=== PATIENT | female | born 1960 | race Caucasian/White ===

== ENCOUNTER → 2017-01-12 | Day surgery (SDC) | payer BC, OTHER ==
[2017-01-09 10:50] VITALS: Ht 162.6 cm; Wt 70.5 kg
[~2017-01-12] VITALS: Ht 162.6 cm; Wt 70.5 kg
[~2017-01-12] MED LIST: CHOL1TAB42 PO; HMLIS SC; LIDOCAINE HCL 2% 2 ML VIAL (20MG/ML) ONE; LOSA50TA6 PO; LVMI SC; METO25TA56 PO; OMEG10007 PO; ONDANSETRON INJ 2 MG/ML 2 ML VIAL ONE; PANT40TA PO; PREG200C PO; PROPOFOL IV EMULSION 10 MG/ML 20 ML VIAL IV ONE; [UNRECOGNIZED DRUG - OTHER] PO
--- NOTE | 2017-01-12 09:46 | Endo History and Physical ---
History & Physical Date of Service: January 12, 2017. Chief Complaint: Ab pain, N/V Referring Physician: Nancy Monsalve History of Present Illness 56 yo CF who presents for EGD and colonoscopy secondary to abdominal pain and nausea with vomiting. Past Surgical History Hx Cardiac Surgery: Yes (HEART CATH, NO STENTS) Hx Internal Defibrillator: No Hx Pacemaker: No Hx Abdominal Surgery: Yes (JORGE L, PELVIC EMBOLIZATIONS) Hx of Implantable Prosthesis: No Hx Post-Op Nausea and Vomiting: No Hx Cancer Surgery: No Hx Thoracic Surgery: No Hx Orthopedic: Yes (RT SHOULDER SURGERY, RT BUNIONECTOMY) Hx Urinary Tract Surgery: No Family History None Social History Smoking Status: Never Smoker Hx Substance Use: No Hx Alcohol Use: No Allergies Coded Allergies: Meperidine (Verified Allergy, Unknown, HIVES, 01/09/17) Current Medications Reported Home Medications Medications Dose Route/Sig Max Daily Dose Days Date Category Dose Instructions Vitamin D (Cholecalciferol) 5,000 Unit Tab 1 Tab PO QAM 01/09/17 Reported [[place]ridge Oil] 1 Cap PO BID 01/09/17 Reported [place]-3 (Fish Oil) 1 Ea Cap 1 Cap PO TID 01/09/17 Reported Humalog Kwikpen (Insulin Human Lispro) 100 Units/Ml Inj Units SC UD 01/09/17 Reported PER SLIDING SCALE Levemir (Insulin Detemir) 100 Units/Ml Inj 30 Units SC QAM 01/09/17 Reported Lyrica (Pregabalin) 200 Mg Cap 200 Mg PO BID 01/09/17 Reported Lopressor (Metoprolol Tartrate) 25 Mg Tab 25 Mg PO BID 01/09/17 Reported Cozaar (Losartan Potassium) 50 Mg Tab 50 Mg PO QAM 01/09/17 Reported Protonix (Pantoprazole Sodium) 40 Mg Tab 40 Mg PO BID 01/09/17 Reported Vital Signs Weight (Kilograms): 70.45 Height (Feet): 5 Height (Inches): 4 Physical Exam General Appearance: WD/WN, no apparent distress Respiratory/Chest: Auscultation: breath sounds normal Cardiovascular: Heart Auscultation: RRR Abdomen: Bowel Sounds: normal Inspection & Palpation: soft, non-distended, no tenderness, guarding & rebound Assessment and Plan Assessment: 56 yo CF who presents for EGD and colonoscopy secondary to abdominal pain and nausea with vomiting. Plan: Proceed with colonoscopy.
--- NOTE | 2017-01-12 10:09 | GI REPORT ---
Procedure Date: 01/12/2017 9:42 AM Procedure: Upper GI endoscopy Indications: Epigastric abdominal pain, Nausea with vomiting Medicines: Monitored Anesthesia Care Complications: No immediate complications. Estimated Blood Loss: Estimated blood loss: none. Procedure: Pre-Anesthesia Assessment: - Prior to the procedure, a History and Physical was performed, and patient medications and allergies were reviewed. The patient's tolerance of previous anesthesia was also reviewed. The risks and benefits of the procedure and the sedation options and risks were discussed with the patient. All questions were answered, and informed consent was obtained. Prior Anticoagulants: The patient has taken no previous anticoagulant or antiplatelet agents. ASA Grade Assessment: II - A patient with mild systemic disease. After reviewing the risks and benefits, the patient was deemed in satisfactory condition to undergo the procedure. After obtaining informed consent, the endoscope was passed under direct vision. Throughout the procedure, the patient's blood pressure, pulse, and oxygen saturations were monitored continuously. The scope was introduced through the mouth, and advanced to the second part of duodenum. The upper GI endoscopy was accomplished without difficulty. The patient tolerated the procedure well. Findings: The esophagus was normal. Localized mild inflammation characterized by erythema was found in the gastric antrum. Biopsies were taken with a cold forceps for histology. The examined duodenum was normal. Biopsies for histology were taken with a cold forceps for evaluation of celiac disease. Impression: - Normal esophagus. - Gastritis. Biopsied. - Normal examined duodenum. Biopsied. Recommendation: - Resume previous diet. - Continue present medications. - Await pathology results. - Return to primary care physician as previously scheduled. Torrey Ng DO 01/12/2017 10:08:42 AM This report has been signed electronically. Note Initiated On: 01/12/2017 9:42 AM I attest to the content of the Intraoperative Record and orders documented therein, exceptions below
--- NOTE | 2017-01-12 10:26 | GI REPORT ---
Procedure Date: 01/12/2017 10:05 AM Procedure: Colonoscopy Indications: Abdominal pain in the right lower quadrant Medicines: Monitored Anesthesia Care Complications: No immediate complications. Estimated Blood Loss: Estimated blood loss: none. Procedure: Pre-Anesthesia Assessment: - Prior to the procedure, a History and Physical was performed, and patient medications and allergies were reviewed. The patient's tolerance of previous anesthesia was also reviewed. The risks and benefits of the procedure and the sedation options and risks were discussed with the patient. All questions were answered, and informed consent was obtained. Prior Anticoagulants: The patient has taken no previous anticoagulant or antiplatelet agents. ASA Grade Assessment: II - A patient with mild systemic disease. After reviewing the risks and benefits, the patient was deemed in satisfactory condition to undergo the procedure. After I obtained informed consent, the scope was passed under direct vision. Throughout the procedure, the patient's blood pressure, pulse, and oxygen saturations were monitored continuously. The scope was introduced through the anus and advanced to the terminal ileum. The colonoscopy was performed without difficulty. The patient tolerated the procedure well. The quality of the bowel preparation was good. The terminal ileum, ileocecal valve, appendiceal orifice, and rectum were photographed. Findings: Non-bleeding internal hemorrhoids were found during retroflexion. The hemorrhoids were small. Several random biopsies were obtained with cold forceps for histology in the entire colon. Impression: - Non-bleeding internal hemorrhoids. - Several random biopsies were obtained in the entire colon. Recommendation: - Resume previous diet. - Continue present medications. - Repeat colonoscopy for surveillance based on pathology results. - Return to primary care physician as previously scheduled. Torrey Ng, DO 01/12/2017 10:25:18 AM This report has been signed electronically. Note Initiated On: 01/12/2017 10:05 AM I attest to the content of the Intraoperative Record and orders documented therein, exceptions below
--- NOTE | 2017-01-12 10:26 | Discharge Instructions ---
Endoscopy Patient Instructions Date / Procedure(s) Performed January 12, 2017. Colonoscopy, EGD Allergy Information Coded Allergies: Meperidine (Verified Allergy, Unknown, HIVES, 01/09/17) Discharge Date / Findings January 12, 2017. EGD: Gastritis s/p biopsies, Duodenal biopsies Colonoscopy: Random colon biopsies, Internal hemorrhoids Medication Instructions OK to resume all medications today as prescribed Reported Home Medications Medications Dose Route/Sig Max Daily Dose Days Date Category Dose Instructions Vitamin D (Cholecalciferol) 5,000 Unit Tab 1 Tab PO QAM 01/09/17 Reported [Borridge Oil] 1 Cap PO BID 01/09/17 Reported [place]-3 (Fish Oil) 1 Ea Cap 1 Cap PO TID 01/09/17 Reported Humalog Kwikpen (Insulin Human Lispro) 100 Units/Ml Inj Units SC UD 01/09/17 Reported PER SLIDING SCALE Levemir (Insulin Detemir) 100 Units/Ml Inj 30 Units SC QAM 01/09/17 Reported Lyrica (Pregabalin) 200 Mg Cap 200 Mg PO BID 01/09/17 Reported Lopressor (Metoprolol Tartrate) 25 Mg Tab 25 Mg PO BID 01/09/17 Reported Cozaar (Losartan Potassium) 50 Mg Tab 50 Mg PO QAM 01/09/17 Reported Protonix (Pantoprazole Sodium) 40 Mg Tab 40 Mg PO BID 01/09/17 Reported Provider Instructions Activity Restrictions - No exercising or heavy lifting for 24 hours. - Do not drink alcohol the day of the procedure. - Do not drive a car or operate machinery until the day after the procedure. - Do not make any important decisions or sign important papers in 24 hours after the procedure. Following Day: - Return to full activity which may include returning to work/school. Diet Start your diet with liquids and light foods (jello, soup, juice, toast). Then eat your usual diet if not nauseated. Treatment For Common After Affects For mild abdominal pain, bloating, or excessive gas: - Rest - Eat lightly - Lie on right side Follow-Up Information Follow-up with Nancy Monsalve as scheduled Anesthesia Information What You Should Know You have had a procedure that required some medicine to reduce anxiety and discomfort. This treatment is called moderate sedation. After receiving the treatment, you may be sleepy, but you will be able to breathe on your own. The effects of the treatment may last for several hours. Follow these instructions along with Activity/Diet recommendations noted above: * Do NOT do anything where dizziness or clumsiness would be dangerous. * Rest quietly at home today, then you can be up and about tomorrow. * Have a responsible person stay with you the rest of today. * You may have had an I.V. today. If so, you may take the dressing off later today. Recommendations Call your doctor if: * Trouble breathing * Continuous vomiting for more than 24 hours * Temperature above 101 degrees * Severe abdominal pain or bloating * Pain not relieved by pain medicine ordered * There is increased drainage or redness from any incision * A large amount of rectal bleeding greater than 2-3 tablespoons. (If you had a polyp/s removed or have hemorrhoids, a small amount of blood - from the rectum is to be expected.) * You have any unanswered questions or concerns. IN THE EVENT OF A SERIOUS EMERGENCY, GO TO THE NEAREST EMERGENCY ROOM Your discharge instructions were prepared by provider Torrey Ng. Patient Instructions Signature Page Danielle Cisneros Patient (or Guardian) Signature/Date: I have read and understand the instructions given to me by my caregivers. Caregiver/RN/Doctor Signature/Date: The above-named patient and/or guardian has received patient instructions on this date. + Original Patient Signature Page (only) stays with chart. Please make copy for patient.
[2017-01-12 10:54] VITALS: BP 116/79; PULSE 80; O2SAT 96
--- NOTE | 2017-01-12 11:01 | Anesthesiology Progress Note ---
Anesthesia Post Op Note Date & Time January 12, 2017 at 11:01 Vital Signs Pain Intensity: 4 Vital Signs Past 12 Hours Date Time Temp Pulse Resp B/P Pulse Ox O2 Delivery O2 Flow Rate FiO2 01/12/17 10:54 80 18 116/79 96 Room Air 01/12/17 10:39 80 18 137/80 96 Room Air 01/12/17 10:24 91 18 150/90 97 Room Air 01/12/17 09:40 36.9 91 20 155/92 97 Room Air Notes Mental Status: alert / awake / arousable, participated in evaluation Pt Amnestic to Procedure: Yes Nausea / Vomiting: adequately controlled Pain: adequately controlled Airway Patency, RR, SpO2: stable & adequate BP & HR: stable & adequate Hydration State: stable & adequate Anesthetic Complications: no major complications apparent
== END | disposition home or self-care (01) ==
LOC: C.GI 09:00
PROVIDERS: ATTEND Internal Medicine
DX: K29.70 Gastritis, unspecified, without bleeding (principal); K64.8 Other hemorrhoids; R10.31 Right lower quadrant pain; R11.2 Nausea with vomiting, unspecified

== ENCOUNTER → 2017-07-10 | Outpatient (CLI) | payer OTHER ==
[~2017-07-10] MED LIST changes: -LIDOCAINE HCL 2% 2 ML VIAL (20MG/ML) ONE; -ONDANSETRON INJ 2 MG/ML 2 ML VIAL ONE; -PROPOFOL IV EMULSION 10 MG/ML 20 ML VIAL IV ONE
[2017-07-10 12:37] LABS: BASO % 0.8 %; BASO ABS # 0.07 K/uL (0-0.2); COMPLETE YES; EOS % 2.2 %; HEMATOCRIT 42.1 % (37-47); IG% 0.2 %; LYMPH % 41.6 %; LYMPH ABS # 3.46 K/uL (1.2-3.4); MEAN CELL VOLUME 91.9 fL (80-100); MEAN CORPUSCULAR HEMOGLOBIN 33.2 pg (25-34); MEAN CORPUSCULAR HGB CONC 36.1 g/dl (32-36); MEAN PLATELET VOLUME 9.9 fL (7.4-10.4); MONO % 5.4 %; NEUT % 49.8 %; PLATELET COUNT 263 K/uL (130-400); RED BLOOD COUNT 4.58 M/uL (4.2-5.4); WHITE BLOOD COUNT 8.32 K/uL (4.8-10.8)
[2017-07-10 13:04] LABS: ESTIMATED AVERAGE GLUCOSE 114 mg/dl; HA1C FLAG Normal (Normal)
[2017-07-10 13:05] LABS: ALT/SGPT 38 U/L (12-78); AST/SGOT 18 U/L (15-37); BLOOD UREA NITROGEN 23 mg/dl (7-18); BUN/CREATININE RATIO 22.4 (10-20); CALCIUM 9.3 mg/dl (8.5-10.1); CARBON DIOXIDE 24 mmol/L (21-32); CHLORIDE 103 mmol/L (98-107); CREATININE 1.03 mg/dl (0.60-1.20); GLUCOSE 197 mg/dl (70-99); SODIUM 139 mmol/L (136-145)
[2017-07-10 13:16] LABS: ALB/GLOB RATIO 1.2 (0.9-2); ALKALINE PHOSPHATASE 61 U/L (45-117)
== END | disposition home or self-care (01) ==
LOC: C.LABBFT 08:10
PROVIDERS: ATTEND Internal Medicine
DX: Z00.00 Encounter for general adult medical examination without abnormal findings (principal); E11.9 Type 2 diabetes mellitus without complications; K76.0 Fatty (change of) liver, not elsewhere classified; E78.5 Hyperlipidemia, unspecified; I10 Essential (primary) hypertension; M34.1 CR(E)ST syndrome

== ENCOUNTER → 2017-09-26 | Outpatient (CLI) | payer BC ==
--- NOTE | 2017-09-26 09:25 | DIAGNOSTIC IMAGING REPORT ---
LEFT HAND 3 VIEWS HISTORY: M02.30 Reactive arthritis H20.9 Uveitis [id number] COMPARISON: None. FINDINGS: There is no fracture or dislocation. Soft tissues are unremarkable. Bone mineralization is intact. Mild cartilage space narrowing at the radiocarpal joint, first MCP joint, interphalangeal joint of the thumb, and DIP and PIP joints. There are also small marginal osteophytes at the DIP and PIP joints of the index and middle fingers. Findings are consistent with mild osteoarthritis. No abnormal periosteal reaction. IMPRESSION: Mild osteoarthritis within the left hand/wrist as described above. No erosions identified. Electronically signed by: Musa Beckman M.D. 09/26/2017 9:23 AM Dictated Date/Time: 09/26/2017 9:21 AM
--- NOTE | 2017-09-26 09:26 | DIAGNOSTIC IMAGING REPORT ---
R HAND MIN 3 VIEWS ROUTINE CLINICAL HISTORY: Reactive arthritis. Uveitis. COMPARISON: None FINDINGS: Alignment of the right hand is anatomic. There is no fracture or suspicious lesion. No erosions are identified. There is mild osteoarthritis within multiple articulations of the right hand, including multiple DIP joints and the radiocarpal articulation. IMPRESSION: 1. Mild osteoarthritis within several articulations of the right hand. 2. No radiographic evidence of an erosive/inflammatory arthropathy. Electronically signed by: Law Monsalve M.D. 09/26/2017 9:25 AM Dictated Date/Time: 09/26/2017 9:20 AM
[2017-09-30 20:35] LABS: ANA SCREEN TC 249X NEGATIVE (NEGATIVE); ANTI-SS-A <1.0 NEG AI (<1.0 NEG); ANTI-SS-B <1.0 NEG AI (<1.0 NEG); ANTICARDIOLIPID AB IGA <11 APL (< = 11); COMPLEMENT C3 TC 44859W 166 MG/DL (90-180); COMPLEMENT C4 TC 44982E 36 MG/DL (16-47); MICROSOMAL AB <1 IU/ML (<9)
== END | disposition home or self-care (01) ==
LOC: C.RAD1850 08:55
PROVIDERS: ATTEND Internal Medicine Rheumatology
DX: M02.30 Reiter's disease, unspecified site (principal); H20.9 Unspecified iridocyclitis; M19.041 Primary osteoarthritis, right hand; M19.042 Primary osteoarthritis, left hand

== ENCOUNTER 2017-10-17 02:02 | Emergency (ER) | payer BC ==
[~2017-10-17] VITALS: Ht 165.1 cm; Wt 73.7 kg
[2017-10-17 02:05] VITALS: TEMP 36.5; Ht 165.1 cm; Wt 73.7 kg
[2017-10-17] MEDS ORDERED: CARB1CAP10 PO (02:37)
[2017-10-17] MEDS ORDERED: GABA-113 PO (02:37)
[2017-10-17] MEDS ORDERED: INDO-24 PO (02:38)
[2017-10-17] MEDS ORDERED: TRAM-10 PO (02:39)
[2017-10-17] MEDS ORDERED: TIZA4TAB3 PO (02:40)
[2017-10-17 04:23] VITALS: BP 165/100; PULSE 95; O2SAT 97
--- NOTE | 2017-10-17 06:48 | DIAGNOSTIC IMAGING REPORT ---
L-SPINE MIN 4 VIEWS ROUTINE CLINICAL HISTORY: Right leg pain. COMPARISON: None FINDINGS: Note is made of cholecystectomy clips and suspected endovascular coils which project over the abdomen and pelvis. Alignment of the lumbar spine is anatomic with the exception of slight anterolisthesis of L5 on S1. No acute fracture is identified. There is mild multilevel facet arthrosis. There are equivocal L5 pars defects. Disc spaces are preserved. There is mild endplate osteophytosis. IMPRESSION: 1. No acute lumbar spine fracture. 2. Minimal anterolisthesis of L5 on S1 with equivocal L5 pars defects. 3. Mild multilevel facet arthrosis and mild multilevel endplate osteophytosis with preserved disc spaces. Electronically signed by: Law Monsalve M.D. 10/17/2017 6:46 AM Dictated Date/Time: 10/17/2017 6:44 AM
--- NOTE | 2017-10-17 06:49 | DIAGNOSTIC IMAGING REPORT ---
PELVIS 1 OR 2 VIEW ROUTINE CLINICAL HISTORY: Right leg pain. COMPARISON STUDY: No previous studies for comparison. FINDINGS: Endovascular coils project over the lower abdomen and upper pelvis. The sacroiliac joints and symphysis pubis are intact. There is no fracture or suspicious lesion within the pelvis or hips. Hip joint spaces are preserved. There is mild osteophytosis of both hips. A 1 cm calcific density adjacent to the superior aspect of the greater trochanter of the left femur is noted. IMPRESSION: 1. No acute fracture within the pelvis or hips. 2. Mild osteoarthritis of the hips. 3. 1 cm calcific density adjacent to the greater trochanter left femur which is chronic and likely due to muscular insertion. Electronically signed by: Law Monsalve M.D. 10/17/2017 6:48 AM Dictated Date/Time: 10/17/2017 6:47 AM
--- NOTE | 2017-10-17 06:50 | DIAGNOSTIC IMAGING REPORT ---
ULTRASOUND R VENOUS DOPP LOWER EXT UNILAT CLINICAL HISTORY: Right leg pain COMPARISON STUDY: No previous studies for comparison. FINDINGS: Real-time and color flow Doppler imaging were performed. Flow was seen within the femoral, popliteal and calf veins with no intraluminal thrombus demonstrated. The saphenous vein is patent. IMPRESSION: No evidence of right lower extremity DVT. Electronically signed by: Jordan Culp M.D. 10/17/2017 6:49 AM Dictated Date/Time: 10/17/2017 6:48 AM
--- NOTE | 2017-10-17 07:00 | DIAGNOSTIC IMAGING REPORT ---
R FEMUR 2 VIEWS ROUTINE CLINICAL HISTORY: Right leg pain. No known trauma. COMPARISON: None FINDINGS: Endovascular coils are incidentally noted within the right hemipelvis. Alignment of the right hip and right knee is anatomic. No fracture or osseous lesion is present. Right hip joint space is preserved. There is mild osteophytosis of the right hip. IMPRESSION: 1. No acute fracture of the right femur. 2. Preserved right hip joint space with minimal osteophytosis. Electronically signed by: Law Monsalve M.D. 10/17/2017 6:58 AM Dictated Date/Time: 10/17/2017 6:58 AM
--- NOTE | 2017-10-18 00:09 | EMERGENCY ROOM VISIT NOTE ---
History First contact with patient: 02:14 Chief Complaint: LEG PAIN,LEG INJURY Stated Complaint: PAIN IN RIGHT THIGH History of Present Illness The patient is a 57 year old female who presents to the Emergency Room with complaints of medial right leg pain for the past 5 or 6 weeks. The patient does not recall injury or trauma. She states the pain is on the medial aspect of her right thigh. The pain does come and go, and she states it is worse tonight than it has been previously. She rates her current discomfort a 7/10, and she was not able to sleep because of the pain. She actually has an appointment with her PCP in 12 hours for this complaint. She has several medications for pain that she takes on a regular basis, but this has not been helping her symptoms. She has been able to ambulate and is not report distinct back or hip pain. No paresthesias. No difficulty using the bathroom. Review of Systems More than 10 systems were reviewed and otherwise negative with the exception of history of present illness. Past Medical/Surgical History Medical Problems: (1) ASTHMA, UNSPECIFIED (2) Cholecystectomy (3) DIAB DESIREE WO COMPL, TYPE II OR UNSPEC TYPE, NOT UNCNTRLD (4) fibromyalgia (5) HYPERTENSION NOS (6) Paroxysmal atrial tachycardia (7) pelvic embolization (8) shoulder arthroscopy for labrum tear Family History No pertinent family history Social History Smoking Status: Never Smoker Alcohol Use: occasionally Marital Status: Housing Status: lives with family Occupation Status: employed Current/Historical Medications Scheduled Carbamazepine Extended Release (Tegretol Xr), 100 MG PO BID Cholecalciferol (Vitamin D), 1 TAB PO QAM Fish Oil ([place]-3), 1 CAP PO TID Gabapentin (Neurontin), 300 MG PO QID Indomethacin (Indocin), 50 MG PO BID Insulin Detemir (Levemir), 30 UNITS SC QAM Insulin Human Lispro (Humalog Kwikpen), UNITS SC UD Losartan Potassium (Cozaar), 100 MG PO QAM Metoprolol Tartrate (Lopressor) (Lopressor), 25 MG PO BID Pantoprazole (Protonix), 40 MG PO BID Pregabalin (Lyrica), 100 MG PO BID Tizanidine Hcl (Zanaflex), 4 MG PO DIRECTED Scheduled PRN Tramadol (Ultram), 100 MG PO QID PRN for Pain Physical Exam Vital Signs Date Time Temp Pulse Resp B/P (MAP) Pulse Ox O2 Delivery O2 Flow Rate FiO2 10/17/17 04:23 95 20 165/100 97 10/17/17 02:43 65 20 151/79 96 Room Air 10/17/17 02:05 36.5 74 20 184/108 98 Room Air Physical Exam VITALS: Vitals are noted on the nurse's note and reviewed by myself. Vital signs stable. GENERAL: Well-developed, well-nourished, white female, who is in no acute distress and resting comfortably. Patient is cooperative with the examination. HEART: Regular rate and rhythm without murmurs gallops or rubs. LUNGS: Clear to auscultation bilaterally without wheezes, rales or rhonchi. No retractions or accessory muscle use. MUSCULOSKELETAL: Mild tenderness appreciated along the medial aspect of the right thigh without distinct focal tenderness. No obvious tenderness of the lumbar spine, hip, or knee. No palpable cord or evidence of infection. Neurovascular status appears intact distally. NEURO: Patient was alert and oriented to person place and time. CN II through XII grossly intact. No focal neurological deficits. Medical Decision & Procedures ER Provider Diagnostic Interpretation: PELVIS 1 OR 2 VIEW ROUTINE CLINICAL HISTORY: Right leg pain. COMPARISON STUDY: No previous studies for comparison. FINDINGS: Endovascular coils project over the lower abdomen and upper pelvis. The sacroiliac joints and symphysis pubis are intact. There is no fracture or suspicious lesion within the pelvis or hips. Hip joint spaces are preserved. There is mild osteophytosis of both hips. A 1 cm calcific density adjacent to the superior aspect of the greater trochanter of the left femur is noted. IMPRESSION: 1. No acute fracture within the pelvis or hips. 2. Mild osteoarthritis of the hips. 3. 1 cm calcific density adjacent to the greater trochanter left femur which is chronic and likely due to muscular insertion. L-SPINE MIN 4 VIEWS ROUTINE CLINICAL HISTORY: Right leg pain. COMPARISON: None FINDINGS: Note is made of cholecystectomy clips and suspected endovascular coils which project over the abdomen and pelvis. Alignment of the lumbar spine is anatomic with the exception of slight anterolisthesis of L5 on S1. No acute fracture is identified. There is mild multilevel facet arthrosis. There are equivocal L5 pars defects. Disc spaces are preserved. There is mild endplate osteophytosis. IMPRESSION: 1. No acute lumbar spine fracture. 2. Minimal anterolisthesis of L5 on S1 with equivocal L5 pars defects. 3. Mild multilevel facet arthrosis and mild multilevel endplate osteophytosis with preserved disc spaces. R FEMUR 2 VIEWS ROUTINE CLINICAL HISTORY: Right leg pain. No known trauma. COMPARISON: None FINDINGS: Endovascular coils are incidentally noted within the right hemipelvis. Alignment of the right hip and right knee is anatomic. No fracture or osseous lesion is present. Right hip joint space is preserved. There is mild osteophytosis of the right hip. IMPRESSION: 1. No acute fracture of the right femur. 2. Preserved right hip joint space with minimal osteophytosis. ULTRASOUND R VENOUS DOPP LOWER EXT UNILAT CLINICAL HISTORY: Right leg pain COMPARISON STUDY: No previous studies for comparison. FINDINGS: Real-time and color flow Doppler imaging were performed. Flow was seen within the femoral, popliteal and calf veins with no intraluminal thrombus demonstrated. The saphenous vein is patent. IMPRESSION: No evidence of right lower extremity DVT. ED Course Physical exam and history were performed. Nursing notes, EMR, and Medication List were personally reviewed. Patient appears to have pain along the medial aspect of her right thigh for the past month. She has anxiety regarding this pain, and states she is unable sleep because of it. I am not able to appreciate neurologic deficit on my exam. X-rays and ultrasound were performed. X-rays are as above and reviewed by myself and radiology showing no acute fracture or correlating bony abnormality. Ultrasound was negative for DVT. I discussed options of care with the patient. She is going to keep her follow- up appointment with her primary care physician this afternoon for further management. She was otherwise invited back to the ER with any new, worsening, or concerning symptoms. The chart was completed utilizing [employer] Speech Voice Recognition Software. Grammatical errors, random word insertions, pronoun errors, and incomplete sentences are an occasional consequence of this system due to software limitations, ambient noise, and hardware issues. Any formal questions or concerns about the content, text, or information contained within the body of this dictation should be directly addressed to the provider for clarification. . Medical Decision Differential diagnosis: Etiologies such as DVT, musculoskeletal, infection, joint effusion, trauma, lymphedema, idiopathic, CHF, as well as others were entertained.. Impression Primary Impression: Right leg pain Departure Information Dispostion Home / Self-Care Condition GOOD Forms HOME CARE DOCUMENTATION FORM, IMPORTANT VISIT INFORMATION Patient Instructions My [facility] Additional Instructions You were seen and evaluated today on an emergency basis only. This is not a substitute for, or an effort to provide, complete comprehensive medical care. It is not possible to recognize and treat all injuries or illnesses in a single emergency department visit. For this reason it is recommended that you followup with your primary care physician office later today for recheck of your condition. You are welcome to return to the emergency department anytime with new, worsening, or concerning symptoms.
== END 2017-10-17 04:27 | disposition home or self-care (01) ==
LOC: C.EDB 02:03
DX: M79.604 Pain in right leg (principal); J45.909 Unspecified asthma, uncomplicated; E11.9 Type 2 diabetes mellitus without complications; I10 Essential (primary) hypertension; I47.1 Supraventricular tachycardia; Z79.4 Long term (current) use of insulin

== ENCOUNTER → 2017-10-18 | Outpatient (CLI) | payer BC ==
[~2017-10-18] MED LIST changes: +CARB1CAP10 PO; +GABA-113 PO; +INDO-24 PO; +TIZA4TAB3 PO; +TRAM-10 PO; -[UNRECOGNIZED DRUG - OTHER] PO
[2017-10-18 13:04] LABS: BLOOD UREA NITROGEN 19 mg/dl (7-18); CREATININE 0.86 mg/dl (0.60-1.20)
== END | disposition home or self-care (01) ==
LOC: C.LABBFT 08:34
PROVIDERS: ATTEND Physician Assistant
DX: E11.9 Type 2 diabetes mellitus without complications (principal)

== ENCOUNTER → 2017-10-27 | Outpatient (CLI) | payer BC ==
[2017-10-27 13:12] LABS: HEMATOCRIT 44.4 % (37-47); HEMOGLOBIN 15.9 g/dL (12.0-16.0); MEAN CELL VOLUME 89.5 fL (80-100); MEAN CORPUSCULAR HEMOGLOBIN 32.1 pg (25-34); MEAN CORPUSCULAR HGB CONC 35.8 g/dl (32-36); MEAN PLATELET VOLUME 9.9 fL (7.4-10.4); PLATELET COUNT 304 K/uL (130-400); RED CELL DISTRIBUTION WIDTH SD 42.3 fL (36.4-46.3); WHITE BLOOD COUNT 6.59 K/uL (4.8-10.8)
[2017-10-27 13:56] LABS: BASO % 0.8 %; BASO ABS # 0.05 K/uL (0-0.2); EOS % 2.3 %; EOS ABS # 0.15 K/uL (0-0.5); IG# 0.01 K/uL (0.00-0.02); LYMPH ABS # 3.43 K/uL (1.2-3.4); MONO ABS # 0.33 K/uL (0.11-0.59); NEUT % 39.7 %; NEUT ABS # 2.62 K/uL (1.4-6.5)
[2017-10-27 13:59] LABS: ALBUMIN 3.7 gm/dl (3.4-5.0); ALKALINE PHOSPHATASE 73 U/L (45-117); ALT/SGPT 39 U/L (12-78); AST/SGOT 17 U/L (15-37); BLOOD UREA NITROGEN 17 mg/dl (7-18); CARBON DIOXIDE 25 mmol/L (21-32); GLUCOSE 267 mg/dl (70-99); POTASSIUM 3.9 mmol/L (3.5-5.1); SODIUM 139 mmol/L (136-145); TOTAL PROTEIN 6.9 gm/dl (6.4-8.2)
== END | disposition home or self-care (01) ==
LOC: C.LAB1850 11:56
PROVIDERS: ATTEND Physician Assistant
DX: G50.0 Trigeminal neuralgia (principal)

== ENCOUNTER → 2017-11-02 | Outpatient (CLI) | payer BC | END | disposition home or self-care (01) | LOC: C.MRI 10:38 | PROVIDERS: ATTEND Internal Medicine Rheumatology | DX: M12.80 Other specific arthropathies, not elsewhere classified, unspecified site (principal) ==

== ENCOUNTER → 2017-11-07 | Outpatient (CLI) | payer BC ==
--- NOTE | 2017-11-02 12:44 | DIAGNOSTIC IMAGING REPORT ---
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 There are no areas of marrow replacement to indicate neoplasm. There is no evidence of sacroiliac joint edema. There is no evidence of pathologic adenopathy. There are no areas of marrow edema to indicate occult fracture. IMPRESSION: No MRI evidence of sacroiliitis. Electronically signed by: Jordan Culp M.D. 11/02/2017 12:43 PM Dictated Date/Time: 11/02/2017 12:40 PM
[~2017-11-07] MED LIST changes: +GADAVIST IV PRN
--- NOTE | 2017-11-07 15:09 | DIAGNOSTIC IMAGING REPORT ---
MRI OF THE BRAIN COMBO TRIGEMINAL NERVE PROTOCOL CLINICAL HISTORY: Right-sided facial pain. COMPARISON STUDY: No priors. TECHNIQUE: MRI of the brain was performed utilizing various T1 and T2-weighted sequences in the axial, sagittal, and coronal planes. Contrast-enhanced sequences were acquired following the administration of 7 cc of Gadavist. Additional high-resolution imaging was performed through the skull base both pre and post contrast to assess the trigeminal nerves. FINDINGS: Brain parenchyma: Small chronic lacunar infarcts are identified in both cerebellar hemispheres. There is minimal periventricular microangiopathic disease. There is no hemorrhage or mass effect. There is no restricted diffusion to suggest acute ischemia. No enhancing mass lesion is identified on the postcontrast images. Jewell-white matter differentiation is preserved. No extra-axial fluid collection is seen. The cerebellar tonsils are normal in configuration. Ventricles, sulci, and cisterns: Normal in configuration. Trigeminal nerves: The trigeminal nerves are normal and symmetric. No abnormal enhancement is identified on the postcontrast series. Pituitary and sella: Unremarkable. Intracranial vasculature: Normal flow voids are maintained at the skull base. Orbits: The bony orbits are grossly intact. Orbital contents are normal in appearance. Sinuses and mastoids: There is a small left mastoid effusion. The right mastoid air cells are clear. The paranasal sinuses are well pneumatized. Calvarium: Unremarkable. Cervical cord: Partially visualized cervical spinal cord is normal in morphology and signal intensity. IMPRESSION: 1. No acute intracranial abnormality. 2. Unremarkable MRI assessment of the trigeminal nerves. Electronically signed by: Bud Yeung M.D. 11/07/2017 3:08 PM Dictated Date/Time: 11/07/2017 3:03 PM
== END | disposition home or self-care (01) ==
LOC: C.MRI 13:46
PROVIDERS: ATTEND Physician Assistant
DX: G50.0 Trigeminal neuralgia (principal); M12.80 Other specific arthropathies, not elsewhere classified, unspecified site

== ENCOUNTER 2017-11-21 11:45 | Emergency (ER) | payer BC ==
[~2017-11-21] VITALS: Ht 165.1 cm; Wt 74.0 kg
[~2017-11-21 11:45] MED LIST changes: -GADAVIST IV PRN
[2017-11-21 11:52] VITALS: TEMP 36.8; Ht 165.1 cm; Wt 74.0 kg
--- NOTE | 2017-11-21 12:26 | DIAGNOSTIC IMAGING REPORT ---
CHEST ONE VIEW PORTABLE CLINICAL HISTORY: 57 years-old Female presenting with Chest pain. TECHNIQUE: Portable upright AP view of the chest was obtained. COMPARISON: 10/05/2012. FINDINGS: Atherosclerosis of the aortic arch. Cardiac silhouette normal in size. Lungs and pleural spaces clear. 2 anchors noted in the right bony glenoid. Upper abdomen normal. IMPRESSION: 1. No acute cardiopulmonary disease. Electronically signed by: Perry Braxton M.D. 11/21/2017 12:24 PM Dictated Date/Time: 11/21/2017 12:24 PM
[2017-11-21 12:47] LABS: HEMATOCRIT 40.4 % (37-47); HEMOGLOBIN 15.1 g/dL (12.0-16.0); MEAN CELL VOLUME 88.8 fL (80-100); MEAN CORPUSCULAR HEMOGLOBIN 33.2 pg (25-34); MEAN CORPUSCULAR HGB CONC 37.4 g/dl (32-36); MEAN PLATELET VOLUME 9.2 fL (7.4-10.4); PLATELET COUNT 252 K/uL (130-400); RED CELL DISTRIBUTION WIDTH SD 41.7 fL (36.4-46.3); WHITE BLOOD COUNT 5.81 K/uL (4.8-10.8)
[2017-11-21 12:56] LABS: INR 1.1 (0.9-1.1); PTT PATIENT 22.1 SECONDS (21.0-31.0)
[2017-11-21 13:17] LABS: ALBUMIN 3.6 gm/dl (3.4-5.0); CALCIUM 8.6 mg/dl (8.5-10.1); CREATININE 0.9 mg/dl (0.60-1.20); POTASSIUM 4.2 mmol/L (3.5-5.1)
--- NOTE | 2017-11-21 13:25 | DIAGNOSTIC IMAGING REPORT ---
CT HEAD WITHOUT CONTRAST (CT) CLINICAL HISTORY: Gait disturbance. Difficulty finding words. COMPARISON STUDY: MRI the brain dated 11/07/2017 TECHNIQUE: Axial CT of the brain is performed from the vertex to the skull base. IV contrast was not administered for this examination. A dose lowering technique was utilized adhering to the principles of ALARA. CT DOSE: 623.48 mGy.cm FINDINGS: No intra or extra-axial mass lesions are visualized. There is no CT evidence of acute cortical infarction. There is no evidence of midline shift. There is no acute hemorrhage. No calvarial fractures are visualized. Prominent frontal CSF space remains stable. There is no evidence of pathologic ventricular dilatation. There is no evidence of acute sinusitis IMPRESSION: No acute intracranial findings Electronically signed by: Jordan Culp M.D. 11/21/2017 1:23 PM Dictated Date/Time: 11/21/2017 1:22 PM
[2017-11-21 13:29] LABS: CKMB 0.5 ng/ml (0.5-3.6); TOTAL PROTEIN 6.3 gm/dl (6.4-8.2)
--- NOTE | 2017-11-21 16:11 | EMERGENCY ROOM VISIT NOTE ---
History First contact with patient: 12:27 Chief Complaint: CARDIAC ASSESSMENT Stated Complaint: CHEST PAIN, PAIN IN HEAD Nursing Triage Summary: pt to the ED with c/o chest pain that goes into neck with FULTON and jaw pain sx started am today pt was seen at [facility] today and sent over has trigeminal neualgia and just had tegretol increased per orange call in sheet History of Present Illness The patient is a 57 year old female who presents to the Emergency Room via private vehicle with complaints of "chest pain, pain in head". The patient states that earlier today around 3:57 AM she woke up to get a drink and had some juice and soup. She states really thereafter had diarrhea and took her tramadol. She then had pain in the right lower quadrant but notes a history of IBS. She tried sweets as the symptoms constipates her. She felt her vision may be off therefore took 20 units of Humalog as this normally helps. She notes that her joints began to hurt, that she massage the joints. She does do stretches and that headache started, and then chest pain around 10 AM. She notes substernal chest pain that is worse with exertion. She felt that her heart was fluttering. She notes that she has had a heart catheterization, thorough cardiac workup and Holter monitor/event monitor which were essentially negative. She states that she took more metoprolol. She then had pain going into her neck and felt dizzy. She states that she also is changing with Tegretol. She also notes a gait disturbance of which she has had for over a year but worsened today. She also feels that she is word searching. Review of Systems A complete 10-point Review of Systems was discussed with the patient, with pertinent positives and negatives listed in the History of Present Illness. All remaining Review of Systems questions can be considered negative unless otherwise specified. Past Medical/Surgical History Medical Problems: (1) ASTHMA, UNSPECIFIED (2) Cholecystectomy (3) DIAB DESIREE WO COMPL, TYPE II OR UNSPEC TYPE, NOT UNCNTRLD (4) fibromyalgia (5) HYPERTENSION NOS (6) Paroxysmal atrial tachycardia (7) pelvic embolization (8) shoulder arthroscopy for labrum tear Social History Smoking Status: Never Smoker Alcohol Use: occasionally Marital Status: Housing Status: lives with family Occupation Status: employed Current/Historical Medications Scheduled Carbamazepine Extended Release (Tegretol Xr), 100 MG PO BID Cholecalciferol (Vitamin D), 1 TAB PO QAM Fish Oil ([place]-3), 1 CAP PO TID Gabapentin (Neurontin), 300 MG PO QID Indomethacin (Indocin), 50 MG PO BID Insulin Detemir (Levemir), 30 UNITS SC QAM Insulin Human Lispro (Humalog Kwikpen), UNITS SC UD Losartan Potassium (Cozaar), 100 MG PO QAM Metoprolol Tartrate (Lopressor) (Lopressor), 25 MG PO BID Pantoprazole (Protonix), 40 MG PO BID Pregabalin (Lyrica), 100 MG PO BID Scheduled PRN Tramadol (Ultram), 100 MG PO QID PRN for Pain Physical Exam Vital Signs Date Time Temp Pulse Resp B/P (MAP) Pulse Ox O2 Delivery O2 Flow Rate FiO2 11/21/17 16:29 75 18 135/80 97 Room Air 11/21/17 13:51 58 18 119/61 97 Room Air 11/21/17 12:19 70 11/21/17 11:52 36.8 69 16 145/79 98 Room Air Physical Exam VITAL SIGNS - Vital signs and nursing notes were reviewed. Stable. GENERAL -57-year-old female appearing her stated age who is in no acute distress. She is nontoxic in appearance and communicates without difficulty. Communicates well with provider and answers questions appropriately. SKIN - Without rashes. No meningeal or petechial rash. HEAD - NC/AT. EYES - PERRL with EOMI bilaterally. Sclera anicteric. No hyphema. EARS - No deformities of external structures noted on gross examination bilaterally.External auditory canals without discharge or otorrhea. Tympanic membranes pearly ceballos without retraction or bulging. No fluid or purulent material visualized behind the TM. Handle of malleus, umbo, cone of light, pars tensa/flaccid all easily visualized. NOSE - Midline and without cyanosis. No epistaxis or purulent drainage noted. Septum midline without deviation or septal hematoma noted. MOUTH/OROPHARYNX - Without perioral cyanosis. Buccal mucosa pink and moist and without leukoplakia. Tongue midline with equal elevation of palate bilaterally. No tonsillar hypertrophy, erythema, or exudates noted. Fair dentition noted. NECK - Neck with FROM. No nuchal rigidity. LUNGS - Chest wall symmetric without accessory muscle use, intercostals retractions, or central cyanosis. Normal vesicular breath sounds CTA B/L. No wheezes, rales, or rhonchi appreciated. CARDIAC - RRR with S1/S2. No murmur, rubs, or gallops appreciated. EXTREMITIES - No clubbing or peripheral cyanosis. No pretibial edema present. She is neurovascularly intact in her extremities. +5/5 strength noted in UE/LE bilaterally. NEUROLOGIC - Cranial nerves II through XII grossly intact. Sensory intact to light touch throughout. PSYCH - A&Ox3 and cooperates fully with examiner. Pt is very pleasant and interacts well with examiner. Medical Decision & Procedures ER Provider Diagnostic Interpretation: CT HEAD WITHOUT CONTRAST (CT) CLINICAL HISTORY: Gait disturbance. Difficulty finding words. COMPARISON STUDY: MRI the brain dated 11/07/2017 TECHNIQUE: Axial CT of the brain is performed from the vertex to the skull base. IV contrast was not administered for this examination. A dose lowering technique was utilized adhering to the principles of ALARA. CT DOSE: 623.48 mGy.cm FINDINGS: No intra or extra-axial mass lesions are visualized. There is no CT evidence of acute cortical infarction. There is no evidence of midline shift. There is no acute hemorrhage. No calvarial fractures are visualized. Prominent frontal CSF space remains stable. There is no evidence of pathologic ventricular dilatation. There is no evidence of acute sinusitis IMPRESSION: No acute intracranial findings CHEST ONE VIEW PORTABLE CLINICAL HISTORY: 57 years-old Female presenting with Chest pain. TECHNIQUE: Portable upright AP view of the chest was obtained. COMPARISON: 10/05/2012. FINDINGS: Atherosclerosis of the aortic arch. Cardiac silhouette normal in size. Lungs and pleural spaces clear. 2 anchors noted in the right bony glenoid. Upper abdomen normal. IMPRESSION: 1. No acute cardiopulmonary disease. Electronically signed by: Perry Braxton M.D. 11/21/2017 12:24 PM Dictated Date/Time: 11/21/2017 12:24 PM Laboratory Results 11/21/17 12:35 11/21/17 12:35 Test 11/21/17 12:35 11/21/17 12:46 11/21/17 13:50 11/21/17 14:55 Red Blood Count 4.55 M/uL (4.2-5.4) Mean Corpuscular Volume 88.8 fL (80-100) Mean Corpuscular Hemoglobin 33.2 pg (25-34) Mean Corpuscular Hemoglobin Concent 37.4 g/dl (32-36) RDW Standard Deviation 41.7 fL (36.4-46.3) RDW Coefficient of Variation 13.0 % (11.5-14.5) Mean Platelet Volume 9.2 fL (7.4-10.4) Prothrombin Time 11.3 SECONDS (9.0-12.0) Prothromb Time International Ratio 1.1 (0.9-1.1) Activated Partial Thromboplast Time 22.1 SECONDS (21.0-31.0) Partial Thromboplastin Ratio 0.9 Anion Gap 9.0 mmol/L (3-11) Est Creatinine Clear Calc Drug Dose 69.5 ml/min Estimated GFR () 82.3 Estimated GFR (Non- 71.0 BUN/Creatinine Ratio 28.3 (10-20) Calcium Level 8.6 mg/dl (8.5-10.1) Total Bilirubin 0.4 mg/dl (0.2-1) Aspartate Amino Transf (AST/SGOT) 16 U/L (15-37) Alanine Aminotransferase (ALT/SGPT) 40 U/L (12-78) Alkaline Phosphatase 62 U/L (45-117) Total Creatine Kinase 32 U/L (26-192) Creatine Kinase MB 0.5 ng/ml (0.5-3.6) Creatine Kinase MB Ratio 1.6 (0-3.0) Total Protein 6.3 gm/dl (6.4-8.2) Albumin 3.6 gm/dl (3.4-5.0) Globulin 2.7 gm/dl (2.5-4.0) Albumin/Globulin Ratio 1.3 (0.9-2) Thyroid Stimulating Hormone (TSH) 1.370 uIu/ml (0.300-4.500) Bedside Troponin I < 0.030 ng/ml (0-0.045) Urine Color YELLOW Urine Appearance CLEAR (CLEAR) Urine pH 5.0 (4.5-7.5) Urine Specific [place] 1.019 (1.000-1.030) Urine Protein NEG (NEG) Urine Glucose (UA) 3+ (NEG) Urine Ketones NEG (NEG) Urine Occult Blood NEG (NEG) Urine Nitrite NEG (NEG) Urine Bilirubin NEG (NEG) Urine Urobilinogen NEG (NEG) Urine Leukocyte Esterase NEG (NEG) Troponin I 0.015 ng/ml (0-0.045) Medical Decision Patient was seen and evaluated as above. Patient was fully evaluated in room C9 review was performed of nursing notes and vital signs. After obtaining a thorough history and physical examination the above work up was performed. She presents to us today with a history of fibromyalgia, as well as ataxic gait and intermittent chest pain over the past year if not longer. She is nontoxic in appearance. The chest pain is nearly subsided at this time. She states that the ataxic gait today is slightly worse than before. I am unable to appreciate any neurovascular deficit on my exam. Bedside EKG and stat CT of the head were obtained. No significant change noted. In regard to her blood work, no significant leukocytosis, anemia, coagulation, electrolyte, kidney or liver abnormality. Glucose was 264. She was educated upon this. Initial troponin was 0.029. This is repeated at the 2 hour ab and was found to be 0.015. I do not suspect any acute cardiac nature. 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 Given that her pain is nearly resolved at this time, and there are no neurologic symptoms I did offer her further workup in the inpatient setting. She respectfully declined noting that she would prefer to be discharged home with close follow-up with the family doctors. I do believe this is reasonable. I did discuss the case thoroughly with the attending physician. Both of her EKGs revealed normal sinus rhythm per my interpretation, with the initial one being performed just prior to noon Was compared to September 2012 and no significant change was found. The subsequent EKG that was performed at 1513 revealed normal sinus rhythm, and was compared to the one previous and no significant change was found. Again I do not suspect any emergent cardiac nature. Patient will be discharged home with close follow-up per her request. It is important note that a shared decision-making process was had with the patient at bedside with in-depth discussion regarding findings today and potentially further workup. The hospital. After this lengthy discussion, she was discharged home. The patient was educated upon management, had questions answered prior to discharge, and was discharged home in good condition. Case was discussed with the attending physician. Concussion, Contrecoup Injury, Brain Tumor, Depression, Encephalitis, Hypothyroidism, Meningitis, CVA, TIA, Migraine, Cluster Headache, Intracranial Abnormality, Intracranial Hemorrhage, Subdural Hematoma, Subarachnoid Hemorrhage , Hydrocephalus, [place], PE, pericarditis, costochondritis, among others. Impression Primary Impression: Chest pain Departure Information Dispostion Home / Self-Care Condition GOOD Referrals Nancy Monsalve M.D. (PCP) Patient Instructions [facility] Additional Instructions You have been treated in the Emergency Department your chest pain, gait disturbance as well as word searching. As we discussed this is less likely be cardiac in nature, and you have respectfully chosen to be discharged with close follow-up. Please continue previous medications. Drink plenty of water and stay well hydrated. You did appear to be dehydrated on the blood work As with any trip to the Emergency Department, you should follow-up with your Primary Care Provider from today's visit. Return to the emergency department if your symptoms persist despite treatment plan outlined above or if the following symptoms occur: Fever, chills, strokelike symptoms, worsening chest pain or any new/concerning symptoms. Thank you for your time
[2017-11-21 16:29] VITALS: BP 135/80; PULSE 75; O2SAT 97
== END 2017-11-21 16:35 | disposition home or self-care (01) ==
LOC: C.EDB 11:47 → C.EDC 16:35
DX: R07.9 Chest pain, unspecified (principal); J45.909 Unspecified asthma, uncomplicated; E11.9 Type 2 diabetes mellitus without complications; I10 Essential (primary) hypertension; I47.1 Supraventricular tachycardia; Z79.4 Long term (current) use of insulin

== ENCOUNTER 2021-07-05 16:55 | Observation (INO) ==
[2021-07-05] MEDS ORDERED: SODIUM CHLORIDE 0.9% 1000ML 1,000 ML IV ONE (17:24)
--- NOTE | 2021-07-05 17:31 | Emergency Department Note ---
Impression & Plan Acute hypotension, Generalized weakness, Elevated troponin ED Provider Note Name: ERVIN CARMONA Age: 60 Sex: F Arrives Via: Walk-In Informant: Patient ED Provider: Al Harper MD Chief Complaint: Weakness Impression: As per impressions above Medical Decision Makin yr old female with extensive PMH arrives for evaluation of diffuse generalized weakness starting 2.5 hrs prior to arrival. Mildly worse on left leg but not truly focal any other way. In setting of acute hypotension and findings I do not feel stroke alert indicated. IV obtained and patient given 1 L NSS Bolus. Rapid improvement in bp and patient feeling much improved. She is breathing comfortably and in no distress. CT head negative, ekg unremarkable and labs essentially normal other than Trop elevation. Unclear etiology of trop bump, though with mild cr elevation may just be renal related in setting of hypotension. This seems unlikely sepsis nor pe/dissection and with normal EKG and no chest discomfort suspect this is not ACS. She does admit episode chest pain to left neck 2 weeks ago, but believes that was gastric in nature and has not re-occured. Unclear etiology of hypotension though with other findings may be dehydration related. Given this constellation I feel hospitalization for further monitoring is reasonable. Prior Medical Record and Triage/Nursing Notes reviewed by Me Additional history obtained from chart Differentials:Infection, dehydration, metabolic abnormality, hypo/hyperglycemia, electrolyte disturbance, anemia, hypoxia, cardiac sources, intracerebral event, toxicologic, neurologic, as well as other pathologies. Vital Signs: reviewed and remarkable for hypotension Interventions: nss bolus 1 L IV Labs:Reviewed and remarkable for + troponin Imaging:See Below EKG:Per My Interpretation: Indication Weakness: Sinus Salazar 59 bpm, qtc 447. No Ectopy. No Ischemia. Compared to EKG 11/21/17, no significant changes. Cardiac/Tele Monitoring: Cardiac Monitoring: An Order was placed for continuous cardiac monitoring. The monitor shows a rate of 60 with a normal sinus rhythm. Consults:Dr Danitza OLIVER Hospitalist Plan: Disposition:Hospitalization. Condition: Good History of Present Illness:60 yr old female arrives for evaluation of weakness. Patient notes a several decade history of episodes of weakness. She every few months has an episode of diffuse generalized weakness. This is without known etiology and they come without known inciting event. Today she notes symptoms starting around 3 pm gradually worsening. No focal weakness, though she does note that left leg weaker than right and uses a cane. Denies headache, neck pain (beyond baseline), nausea, vomiting, back pain, shortness of breath, chest pain, syncope, tremors, fevers, chills, abdominal pain, urinary/bowel symptoms, cough, leg swelling, rashes, nor other symptoms. No medications prior to arrival. Exertion makes worse, rest makes better. Denies any pain other than her chronic pains. ROS: See above HPI for pertinent positives & negatives. A total of 10 systems reviewed and were otherwise negative. Past Medical History:See Below Past Surgical History:See Below Family History:See Below Social History:See Below Home Medications:See Below Allergies:Demerol Vitals:Blood Pressure: 83/42, Pulse 60, RR 14, T 36.9C, O2 97% on RA Physical Exam: GENERAL: Patient is tired appearing and in mild distress. EYES: No scleral icterus, unremarkable pupils. ENT: Mucous membranes dry, no nasal congestion. NECK: No masses appreciated, nomeningismus, trachea is midline. RESPIRATORY: No dyspnea. Clear to auscultation and equal bilaterally. No wheeze, no rhonchi. CARDIOVASCULAR: Regular rate and rhythm.No murmurs, rubs, gallops appreciated. GASTROINTESTINAL: Abdomen soft, non-tender, no peritonitis.Bowel sounds positive.No masses appreciated. BACK: No midline tenderness, no CVA tenderness EXTREMITIES: Normal motion all extremities, no cyanosis, no edema. NEUROLOGIC: Diffuse generalized weakness, alert and oriented, no acute motor or sensory deficits, no focal weakness other than mild worse weak of left leg vs right, cranial nerves grossly intact. SKIN: No rash, no jaundice, no diaphoresis. PSYCH: Appropriate GCS: 15 ED Course: Times/Reassessments: vastly improved with NSS bolus. BP improved, and patient is mobile without discomfort. Al Harper MD Past Med/Surg History Medical History (Updated 07/05/21 @ 23:35 by Al Harper MD) Acid reflux disease Calcinosis, Raynaud phenomenon, esophageal dysfunction, sclerodactyly, and telangiectasia (CREST) syndrome Chronic abdominal pain Chronic cerebral ischemia Depression with anxiety Fatty liver Fibromyalgia (10/05/12) HLA-B27 positive arthropathy Hyperlipidemia Hypertension Irritable bowel syndrome Lumbar radiculopathy Migraine headache with aura Paroxysmal atrial tachycardia (10/05/12) Reactive arthritis Seasonal allergies Trigeminal neuralgia Type 2 diabetes mellitus Unspecified asthma (10/05/12) Surgical History S/P cholecystectomy S/P shoulder surgery Social History Smoking Status: Never smoker Preferred Language: Vietnamese Feels Safe at Home: Yes Allergies Allergies Allergy/AdvReac Type Severity Reaction Status Date / Time meperidine Allergy Unknown HIVES Verified 07/05/21 20:24 Home Meds Home Medications Medication Instructions Recorded Confirmed cholecalciferol (vitamin D3) 125 5,000 unit PO DAILY tab 05/03/19 07/05/21 mcg (5,000 unit) tablet evening 2 cap PO DAILY cap 05/03/19 07/05/21 nhncyqnh-ulttyvse-qotxuvl-cran 500 mg-365 mg-45 mg-200 mg cap cetirizine 10 mg tablet 10 mg PO DAILY #30 tab 06/19/19 07/05/21 azelastine 137 mcg (0.1 %) nasal 1 sprays INTNAS BID PRN 07/05/21 07/05/21 spray aerosol insulin glargine 100 unit/mL (3 30 unit SUBCUT QAM 07/05/21 07/05/21 mL) subcutaneous pen omega-3 fatty acids 0 mg PO DAILY 07/05/21 07/05/21 ondansetron 4 mg disintegrating 4 mg PO Q8H PRN 07/05/21 07/05/21 tablet pantoprazole 40 mg tablet,delayed 40 mg PO QPM 07/05/21 07/05/21 release tizanidine 2 mg tablet 2 mg PO Q8 PRN 07/05/21 07/05/21 Previous Rx's Medication Instructions Recorded indomethacin 50 mg capsule 100 mg PO BID #60 cap 01/21/20 pen needle, diabetic 32 gauge x #50 ea 06/26/2008/31" (Novofine 32) lorazepam 1 mg tablet 1 mg PO .COMPLEX #5 tab 09/09/20 ezetimibe 10 mg tablet 10 mg PO DAILY #90 tab 10/05/20 losartan 100 mg tablet 100 mg PO DAILY #90 tab 10/05/20 metoprolol tartrate 25 mg tablet 75 mg PO BID #540 tab 03/08/21 carbamazepine 400 mg 400 mg PO BID #60 tab 05/31/21 tablet,extended release,12 hr pregabalin 200 mg capsule (Lyrica) 200 mg PO TID #90 cap 06/03/21 tramadol 50 mg tablet See Rx Instructions PO .COMPLEX 06/17/21 #240 tab Results & Data (ED) Vital Signs Vital Signs - 24 hr 07/05/21 16:58 07/05/21 17:10 07/05/21 17:20 Temperature 36.9 C Temperature Source Temporal Artery Scan Pulse Rate 81 60 60 Pulse Rate [Left Finger] Pulse Rate from SpO2 Sensor 61 60 Pulse Rhythm [Left Finger] Pulse Strength [Left Finger] Respiratory Rate 19 14 18 Respiratory Effort / Characteristics Non-Labored Respiratory Depth Normal Respiratory Pattern Blood Pressure 66/41 L 83/42 L Blood Pressure [Right Arm] Blood Pressure Mean 49 55 Blood Pressure Mean [Right Arm] Blood Pressure Position [Right Arm] Pulse Oximetry 97 97 97 Oxygen Delivery Method Room Air Room Air Sepsis Recent Fever Within 48 Hours No Sepsis New/Unexplained Change in Mental Status N/A Sepsis Action Taken by Nursing No Action Required 07/05/21 17:30 07/05/21 17:40 07/05/21 17:50 Temperature Temperature Source Pulse Rate 66 59 L 59 L Pulse Rate [Left Finger] Pulse Rate from SpO2 Sensor 61 59 L 60 Pulse Rhythm [Left Finger] Pulse Strength [Left Finger] Respiratory Rate 12 12 15 Respiratory Effort / Characteristics Respiratory Depth Respiratory Pattern Blood Pressure Blood Pressure [Right Arm] Blood Pressure Mean Blood Pressure Mean [Right Arm] Blood Pressure Position [Right Arm] Pulse Oximetry 97 94 95 Oxygen Delivery Method Sepsis Recent Fever Within 48 Hours Sepsis New/Unexplained Change in Mental Status Sepsis Action Taken by Nursing 07/05/21 18:00 07/05/21 18:10 07/05/21 18:20 Temperature Temperature Source Pulse Rate 61 59 L 57 L Pulse Rate [Left Finger] Pulse Rate from SpO2 Sensor 60 60 58 L Pulse Rhythm [Left Finger] Pulse Strength [Left Finger] Respiratory Rate 17 12 18 Respiratory Effort / Characteristics Respiratory Depth Respiratory Pattern Blood Pressure 80/40 L Blood Pressure [Right Arm] 80/40 L Blood Pressure Mean 53 Blood Pressure Mean [Right Arm] 53 Blood Pressure Position [Right Arm] Pulse Oximetry 94 98 95 Oxygen Delivery Method Sepsis Recent Fever Within 48 Hours Sepsis New/Unexplained Change in Mental Status Sepsis Action Taken by Nursing 07/05/21 18:30 07/05/21 18:40 07/05/21 18:50 Temperature Temperature Source Pulse Rate 55 L 63 65 Pulse Rate [Left Finger] Pulse Rate from SpO2 Sensor 57 L 61 65 Pulse Rhythm [Left Finger] Pulse Strength [Left Finger] Respiratory Rate 13 16 13 Respiratory Effort / Characteristics Respiratory Depth Respiratory Pattern Blood Pressure Blood Pressure [Right Arm] Blood Pressure Mean Blood Pressure Mean [Right Arm] Blood Pressure Position [Right Arm] Pulse Oximetry 97 97 99 Oxygen Delivery Method Room Air Sepsis Recent Fever Within 48 Hours Sepsis New/Unexplained Change in Mental Status Sepsis Action Taken by Nursing 07/05/21 19:00 07/05/21 19:07 07/05/21 19:22 Temperature Temperature Source Pulse Rate 67 55 L Pulse Rate [Left Finger] 67 Pulse Rate from SpO2 Sensor 67 Pulse Rhythm [Left Finger] Regular Pulse Strength [Left Finger] Normal Respiratory Rate 12 14 14 Respiratory Effort / Characteristics Non-Labored Spontaneous Respiratory Depth Normal Respiratory Pattern Regular Blood Pressure Blood Pressure [Right Arm] 97/61 L Blood Pressure Mean Blood Pressure Mean [Right Arm] 73 Blood Pressure Position [Right Arm] Lying Pulse Oximetry 97 100 96 Oxygen Delivery Method Room Air Sepsis Recent Fever Within 48 Hours Sepsis New/Unexplained Change in Mental Status Sepsis Action Taken by Nursing 07/05/21 19:30 07/05/21 19:40 07/05/21 19:45 Temperature Temperature Source Pulse Rate 66 66 Pulse Rate [Left Finger] Pulse Rate from SpO2 Sensor 66 66 Pulse Rhythm [Left Finger] Pulse Strength [Left Finger] Respiratory Rate 14 16 Respiratory Effort / Characteristics Respiratory Depth Respiratory Pattern Blood Pressure 115/66 Blood Pressure [Right Arm] 122/72 Blood Pressure Mean 82 Blood Pressure Mean [Right Arm] 88 Blood Pressure Position [Right Arm] Pulse Oximetry 96 97 Oxygen Delivery Method Room Air Sepsis Recent Fever Within 48 Hours Sepsis New/Unexplained Change in Mental Status Sepsis Action Taken by Nursing 07/05/21 19:50 07/05/21 20:00 07/05/21 20:10 Temperature Temperature Source Pulse Rate 63 64 68 Pulse Rate [Left Finger] Pulse Rate from SpO2 Sensor 63 65 69 Pulse Rhythm [Left Finger] Pulse Strength [Left Finger] Respiratory Rate 16 15 14 Respiratory Effort / Characteristics Respiratory Depth Respiratory Pattern Blood Pressure 142/75 H Blood Pressure [Right Arm] 142/75 H Blood Pressure Mean 97 Blood Pressure Mean [Right Arm] 97 Blood Pressure Position [Right Arm] Pulse Oximetry 98 98 97 Oxygen Delivery Method Room Air Sepsis Recent Fever Within 48 Hours Sepsis New/Unexplained Change in Mental Status Sepsis Action Taken by Nursing 07/05/21 20:20 07/05/21 20:30 07/05/21 20:40 Temperature Temperature Source Pulse Rate 66 70 73 Pulse Rate [Left Finger] Pulse Rate from SpO2 Sensor 73 Pulse Rhythm [Left Finger] Pulse Strength [Left Finger] Respiratory Rate 14 18 13 Respiratory Effort / Characteristics Respiratory Depth Respiratory Pattern Blood Pressure Blood Pressure [Right Arm] Blood Pressure Mean Blood Pressure Mean [Right Arm] Blood Pressure Position [Right Arm] Pulse Oximetry 98 98 98 Oxygen Delivery Method Room Air Room Air Sepsis Recent Fever Within 48 Hours Sepsis New/Unexplained Change in Mental Status Sepsis Action Taken by Nursing 07/05/21 20:50 07/05/21 21:00 07/05/21 21:10 Temperature Temperature Source Pulse Rate 66 67 68 Pulse Rate [Left Finger] Pulse Rate from SpO2 Sensor 66 67 70 Pulse Rhythm [Left Finger] Pulse Strength [Left Finger] Respiratory Rate 15 15 12 Respiratory Effort / Characteristics Respiratory Depth Respiratory Pattern Blood Pressure 117/68 Blood Pressure [Right Arm] Blood Pressure Mean 84 Blood Pressure Mean [Right Arm] Blood Pressure Position [Right Arm] Pulse Oximetry 95 94 94 Oxygen Delivery Method Sepsis Recent Fever Within 48 Hours Sepsis New/Unexplained Change in Mental Status Sepsis Action Taken by Nursing 07/05/21 21:20 07/05/21 21:30 07/05/21 21:40 Temperature Temperature Source Pulse Rate 74 65 66 Pulse Rate [Left Finger] Pulse Rate from SpO2 Sensor 73 65 67 Pulse Rhythm [Left Finger] Pulse Strength [Left Finger] Respiratory Rate 18 14 14 Respiratory Effort / Characteristics Respiratory Depth Respiratory Pattern Blood Pressure 138/71 Blood Pressure [Right Arm] Blood Pressure Mean 93 Blood Pressure Mean [Right Arm] Blood Pressure Position [Right Arm] Pulse Oximetry 98 93 94 Oxygen Delivery Method Room Air Sepsis Recent Fever Within 48 Hours Sepsis New/Unexplained Change in Mental Status Sepsis Action Taken by Nursing 07/05/21 21:50 07/05/21 22:00 07/05/21 22:10 Temperature Temperature Source Pulse Rate 68 65 68 Pulse Rate [Left Finger] Pulse Rate from SpO2 Sensor 67 60 69 Pulse Rhythm [Left Finger] Pulse Strength [Left Finger] Respiratory Rate 14 16 14 Respiratory Effort / Characteristics Respiratory Depth Respiratory Pattern Blood Pressure 127/71 Blood Pressure [Right Arm] Blood Pressure Mean 89 Blood Pressure Mean [Right Arm] Blood Pressure Position [Right Arm] Pulse Oximetry 93 92 94 Oxygen Delivery Method Room Air Sepsis Recent Fever Within 48 Hours Sepsis New/Unexplained Change in Mental Status Sepsis Action Taken by Nursing 07/05/21 22:20 07/05/21 22:30 07/05/21 22:40 Temperature Temperature Source Pulse Rate 66 75 72 Pulse Rate [Left Finger] Pulse Rate from SpO2 Sensor 74 69 Pulse Rhythm [Left Finger] Pulse Strength [Left Finger] Respiratory Rate 14 14 14 Respiratory Effort / Characteristics Respiratory Depth Respiratory Pattern Blood Pressure 135/71 Blood Pressure [Right Arm] Blood Pressure Mean 92 Blood Pressure Mean [Right Arm] Blood Pressure Position [Right Arm] Pulse Oximetry 96 96 93 Oxygen Delivery Method Room Air Room Air Sepsis Recent Fever Within 48 Hours Sepsis New/Unexplained Change in Mental Status Sepsis Action Taken by Nursing 07/05/21 22:50 07/05/21 23:00 07/05/21 23:10 Temperature Temperature Source Pulse Rate 76 74 66 Pulse Rate [Left Finger] Pulse Rate from SpO2 Sensor 73 76 66 Pulse Rhythm [Left Finger] Pulse Strength [Left Finger] Respiratory Rate 14 14 14 Respiratory Effort / Characteristics Respiratory Depth Respiratory Pattern Blood Pressure 131/78 Blood Pressure [Right Arm] Blood Pressure Mean 95 Blood Pressure Mean [Right Arm] Blood Pressure Position [Right Arm] Pulse Oximetry 96 96 96 Oxygen Delivery Method Room Air Sepsis Recent Fever Within 48 Hours Sepsis New/Unexplained Change in Mental Status Sepsis Action Taken by Nursing Laboratory Data Result diagrams: 07/05/21 18:12 07/05/21 18:12 Lab Results 07/05/21 07/05/21 07/05/21 Range/Units 18:12 18:12 18:12 WBC 9.87 (4.8-10.8) K/uL RBC 4.20 (4.2-5.4) M/uL Hgb 13.7 (12.0-16.0) g/dL Hct 38.3 (37-47) % MCV 91.2 (80-100) fL MCH 32.6 (25-34) pg MCHC 35.8 (32-36) g/dL RDW Std Deviation 41.7 (36.4-46.3) fL RDW Coeff of Brent 12.6 (11.5-14.5) % Plt Count 260 (130-400) K/uL MPV 9.7 (7.4-10.4) fL Immature Gran % (Auto) 0.3 % Neut % (Auto) 64.6 % Lymph % (Auto) 28.0 % [place] % (Auto) 5.4 % Eos % (Auto) 1.3 % Baso % (Auto) 0.4 % Neut # (Auto) 6.38 (1.4-6.5) K/uL Lymph # (Auto) 2.76 (1.2-3.4) K/uL [place] # (Auto) 0.53 (0.11-0.59) K/uL Eos # (Auto) 0.13 (0-0.5) K/uL Baso # (Auto) 0.04 (0-0.2) K/uL Immature Gran # (Auto) 0.03 H (0.00-0.02) K/uL Sodium 140 (136-145) mmol/L Potassium 3.8 (3.5-5.1) mmol/L Chloride 108 H (98-107) mmol/L Carbon Dioxide 24 (21-32) mmol/L Anion Gap 8.0 (3-11) BUN 14 (7-18) mg/dl Creatinine 1.66 H (0.6-1.2) mg/dl Est Cr Clr Drug Dosing 36.5 ml/min Est GFR ( Amer) 38.4 ml/min Est GFR (Non-Af Amer) 33.2 ml/min BUN/Creatinine Ratio 8.6 L (10-20) Glucose 143 H (70-99) mg/dl Calcium 9.5 (8.5-10.1) mg/dl Magnesium 2.3 (1.8-2.4) mg/dl Total Bilirubin 0.4 (0.2-1) mg/dl Direct Bilirubin (0-0.2) mg/dl AST 15 (15-37) U/L ALT 25 (12-78) U/L Alkaline Phosphatase 69 (45-117) U/L Total Creatine Kinase 68 (26-192) U/L Troponin I 0.053 H* (0-0.045) ng/ml Total Protein 6.5 (6.4-8.2) gm/dl Albumin 3.6 (3.4-5.0) gm/dl Lipase 89 (73-393) U/L Procalcitonin (0-0.5) ng/ml Specimen Hemolysis Urine Color Urine Appearance (Clear) Urine pH (4.5-7.5) Ur Specific [place] (1.000-1.030) Urine Protein (Negative) Urine Glucose (UA) (Negative) Urine Ketones (Negative) Urine Blood (Negative) Urine Nitrite (Negative) Urine Bilirubin (Negative) Urine Urobilinogen (Negative) Ur Leukocyte Esterase (Negative) Urine WBC (Auto) (0-5) /hpf Urine RBC (Auto) (0-4) /hpf U Hyaline Cast (Auto) (0-5) /lpf U Epithel Cells (Auto) (0-5) /lpf Urine Bacteria (Auto) (Negative) Lyme Disease IgG Ab Negative (Negative) Lyme Disease IgM Ab Negative (Negative) COVID-19 Eval Order SARS-CoV-2 (PCR) (Negative) 07/05/21 07/05/21 07/05/21 Range/Units 18:12 19:56 19:56 WBC (4.8-10.8) K/uL RBC (4.2-5.4) M/uL Hgb (12.0-16.0) g/dL Hct (37-47) % MCV (80-100) fL MCH (25-34) pg MCHC (32-36) g/dL RDW Std Deviation (36.4-46.3) fL RDW Coeff of Brent (11.5-14.5) % Plt Count (130-400) K/uL MPV (7.4-10.4) fL Immature Gran % (Auto) % Neut % (Auto) % Lymph % (Auto) % [place] % (Auto) % Eos % (Auto) % Baso % (Auto) % Neut # (Auto) (1.4-6.5) K/uL Lymph # (Auto) (1.2-3.4) K/uL [place] # (Auto) (0.11-0.59) K/uL Eos # (Auto) (0-0.5) K/uL Baso # (Auto) (0-0.2) K/uL Immature Gran # (Auto) (0.00-0.02) K/uL Sodium (136-145) mmol/L Potassium (3.5-5.1) mmol/L Chloride (98-107) mmol/L Carbon Dioxide (21-32) mmol/L Anion Gap (3-11) BUN (7-18) mg/dl Creatinine (0.6-1.2) mg/dl Est Cr Clr Drug Dosing ml/min Est GFR ( Amer) ml/min Est GFR (Non-Af Amer) ml/min BUN/Creatinine Ratio (10-20) Glucose (70-99) mg/dl Calcium (8.5-10.1) mg/dl Magnesium (1.8-2.4) mg/dl Total Bilirubin (0.2-1) mg/dl Direct Bilirubin (0-0.2) mg/dl AST (15-37) U/L ALT (12-78) U/L Alkaline Phosphatase (45-117) U/L Total Creatine Kinase (26-192) U/L Troponin I (0-0.045) ng/ml Total Protein (6.4-8.2) gm/dl Albumin (3.4-5.0) gm/dl Lipase (73-393) U/L Procalcitonin 0.05 (0-0.5) ng/ml Specimen Hemolysis Urine Color Urine Appearance (Clear) Urine pH (4.5-7.5) Ur Specific [place] (1.000-1.030) Urine Protein (Negative) Urine Glucose (UA) (Negative) Urine Ketones (Negative) Urine Blood (Negative) Urine Nitrite (Negative) Urine Bilirubin (Negative) Urine Urobilinogen (Negative) Ur Leukocyte Esterase (Negative) Urine WBC (Auto) (0-5) /hpf Urine RBC (Auto) (0-4) /hpf U Hyaline Cast (Auto) (0-5) /lpf U Epithel Cells (Auto) (0-5) /lpf Urine Bacteria (Auto) (Negative) Lyme Disease IgG Ab (Negative) Lyme Disease IgM Ab (Negative) COVID-19 Eval Order Covid19 at [facility] SARS-CoV-2 (PCR) NEGATIVE (Negative) 07/05/21 Range/Units Unknown WBC (4.8-10.8) K/uL RBC (4.2-5.4) M/uL Hgb (12.0-16.0) g/dL Hct (37-47) % MCV (80-100) fL MCH (25-34) pg MCHC (32-36) g/dL RDW Std Deviation (36.4-46.3) fL RDW Coeff of Brent (11.5-14.5) % Plt Count (130-400) K/uL MPV (7.4-10.4) fL Immature Gran % (Auto) % Neut % (Auto) % Lymph % (Auto) % [place] % (Auto) % Eos % (Auto) % Baso % (Auto) % Neut # (Auto) (1.4-6.5) K/uL Lymph # (Auto) (1.2-3.4) K/uL [place] # (Auto) (0.11-0.59) K/uL Eos # (Auto) (0-0.5) K/uL Baso # (Auto) (0-0.2) K/uL Immature Gran # (Auto) (0.00-0.02) K/uL Sodium (136-145) mmol/L Potassium (3.5-5.1) mmol/L Chloride (98-107) mmol/L Carbon Dioxide (21-32) mmol/L Anion Gap (3-11) BUN (7-18) mg/dl Creatinine (0.6-1.2) mg/dl Est Cr Clr Drug Dosing ml/min Est GFR ( Amer) ml/min Est GFR (Non-Af Amer) ml/min BUN/Creatinine Ratio (10-20) Glucose (70-99) mg/dl Calcium (8.5-10.1) mg/dl Magnesium (1.8-2.4) mg/dl Total Bilirubin (0.2-1) mg/dl Direct Bilirubin (0-0.2) mg/dl AST (15-37) U/L ALT (12-78) U/L Alkaline Phosphatase (45-117) U/L Total Creatine Kinase (26-192) U/L Troponin I (0-0.045) ng/ml Total Protein (6.4-8.2) gm/dl Albumin (3.4-5.0) gm/dl Lipase (73-393) U/L Procalcitonin (0-0.5) ng/ml Specimen Hemolysis Urine Color Yellow Urine Appearance Clear (Clear) Urine pH 5.0 (4.5-7.5) Ur Specific [place] 1.014 (1.000-1.030) Urine Protein Negative (Negative) Urine Glucose (UA) 3+ H (Negative) Urine Ketones Negative (Negative) Urine Blood Negative (Negative) Urine Nitrite Negative (Negative) Urine Bilirubin Negative (Negative) Urine Urobilinogen Negative (Negative) Ur Leukocyte Esterase 1+ H (Negative) Urine WBC (Auto) 5-10 H (0-5) /hpf Urine RBC (Auto) 0-4 (0-4) /hpf U Hyaline Cast (Auto) 5-10 H (0-5) /lpf U Epithel Cells (Auto) >30 H (0-5) /lpf Urine Bacteria (Auto) Negative (Negative) Lyme Disease IgG Ab (Negative) Lyme Disease IgM Ab (Negative) COVID-19 Eval Order SARS-CoV-2 (PCR) (Negative) Administered Medications Sodium Chloride (Nss 1000ml) 1,000 mls @ 100 mls/hr IV .Q10H ASHLEE Stop: 07/06/21 17:59 Last Admin: 07/05/21 22:28 Dose: 100 mls/hr Documented by: [id number] Discontinued Medications Sodium Chloride (Nss 1000ml) 1,000 mls @ 999 mls/hr IV .Q1H1M ONE Stop: 07/05/21 18:24 Last Infusion: 07/05/21 19:09 Dose: 0 mls/hr Documented by: [id number] Admin: 07/05/21 18:08 Dose: 999 mls/hr Documented by: [id number] Imaging Data Radiologist's Impression: Head CT 07/05/21 17:24 CT head/brain wo con CLINICAL HISTORY: diffuse generalized weakness Technique: Contiguous axial CT images of the head were acquired from the base of the skull to the vertex without intravenous contrast administration. Images were viewed in brain, subdural and bone windows. Automated dose lowering techniques and/or adjustment according to patient size were utilized for this exam. Comparison: Comparison is made to CT head 11/21/2017 Findings: The ventricles, basal cisterns, and cerebral sulci are normal. There is no acute intracranial hemorrhage or evidence of acute territorial infarction. Neither mass effect, shift of the midline structures, nor abnormal extra-axial fluid co llections are shown. Prominent subarachnoid spaces are seen in the bilateral frontal lobes. Imaged portions of the paranasal sinuses and mastoid air cells are clear. The orbits appear normal. There are no acute fractures of the calvaria or scalp swelling. Impression: No acute intracranial hemorrhage, no evidence of acute territorial infarction or other acute intracranial disease process. ACT 112: Negative or not required by law. Electronically signed by: Obey Souza M.D. 07/05/2021 7:22 PM Chest X-Ray 07/05/21 17:25 XR chest 1V portable CLINICAL HISTORY: diffuse weakness TECHNIQUE: Single frontal radiograph of the chest was obtained. Comparison: Comparison is made to chest 2 views 07/05/2021 FINDINGS: No lines and tubes are seen. The cardiomediastinal silhouette is normal. The lungs are clear. No evidence of pleural effusion or pneumothorax. IMPRESSION: No acute chest disease. ACT 112: Negative or not required by law. Electronically signed by: Obey Souza M.D. 07/05/2021 5:41 PM Discharge Plan Visit Data Chief Complaint: Neuro Symptoms/Deficit Stated Complaint: LOSS OF FUNCTION, CANT SWALLOW, VISION PROBLEMS ED Provider: Al Harper Discharge Problem: Acute hypotension, Generalized weakness, Elevated troponin Discharge Instructions Interventions: ED Discharge Assessment Last Done: 07/05/21 23:17 Forms Stand Alone Forms: My [employer] Prescriptions Prescriptions: No Action indomethacin 50 mg capsule 100 mg PO BID Qty: 60 RF: 0 ezetimibe 10 mg tablet 10 mg PO DAILY Qty: 90 RF: 3 losartan 100 mg tablet 100 mg PO DAILY Qty: 90 RF: 3 metoprolol tartrate 25 mg tablet 75 mg PO BID Qty: 540 RF: 3 carbamazepine 400 mg tablet extended release 12 hr 400 mg PO BID Qty: 60 RF: 2 Lyrica 200 mg capsule 200 mg PO TID Qty: 90 RF: 5 tramadol 50 mg tablet See Rx Instructions PO .COMPLEX Qty: 240 RF: 0 (DME) pen needle, diabetic [Novofine 32] 32 gauge x 1/4" needle See Rx Instructions .ROUTE .MEDSUPPLY Qty: 50 RF: 1 lorazepam 1 mg tablet 1 mg PO .COMPLEX Qty: 5 RF: 0 radha nvdb-xpwkmqbs-bxggjem-cran [id number] mg capsule 2 cap PO DAILY RF: 0 cholecalciferol (vitamin D3) 5,000 unit tablet 5,000 unit PO DAILY RF: 0 cetirizine 10 mg tablet 10 mg PO DAILY Qty: 30 RF: 0 Fish Oil Capsule 0 mg PO DAILY RF: 0 tizanidine 2 mg tablet 2 mg PO Q8 PRN (Reason: Muscle Pain) RF: 0 pantoprazole 40 mg tablet,delayed release (DR/EC) 40 mg PO QPM RF: 0 azelastine 137 mcg (0.1 %) aerosol,spray 1 sprays INTNAS BID PRN (Reason: allergies) RF: 0 ondansetron 4 mg tablet,disintegrating 4 mg PO Q8H PRN (Reason: Nausea) RF: 0 insulin glargine 100 unit/mL (3 mL) insulin pen 30 unit subcut QAM RF: 0 Referrals Referrals: Nancy Monsalve MD [Primary Care Provider] -
--- NOTE | 2021-07-05 17:43 | XRay Report ---
XR chest 1V portable CLINICAL HISTORY: diffuse weakness TECHNIQUE: Single frontal radiograph of the chest was obtained. Comparison: Comparison is made to chest 2 views 07/05/2021 FINDINGS: No lines and tubes are seen. The cardiomediastinal silhouette is normal. The lungs are clear. No evid ence of pleural effusion or pneumothorax. IMPRESSION: No acute chest disease. ACT 112: Negative or not required by law. Electronically signed by: Obey Souza M.D. 07/05/2021 5:41 PM
[2021-07-05 18:20] LABS: Basophils # (auto) 0.04 K/uL (0-0.2); Basophils % (auto) 0.4 %; Eosinophils # (auto) 0.13 K/uL (0-0.5); Eosinophils % (auto) 1.3 %; Hematocrit (blood only) 38.3 % (37-47); Hemoglobin 13.7 g/dL (12.0-16.0); Immature Granulocytes # (auto) 0.03 K/uL (0.00-0.02); Immature Granulocytes % (auto) 0.3 %; Lymphocytes # (auto) 2.76 K/uL (1.2-3.4); Mean Corpuscular Hemoglobin 32.6 pg (25-34); Mean Corpuscular Hgb Conc 35.8 g/dL (32-36); Mean Corpuscular Volume 91.2 fL (80-100); Mean Platelet Volume 9.7 fL (7.4-10.4); Monocytes # (auto) 0.53 K/uL (0.11-0.59); Monocytes % (auto) 5.4 %; Neutrophils # (auto) 6.38 K/uL (1.4-6.5); Neutrophils % (auto) 64.6 %; Platelet Count 260 K/uL (130-400); RDW Coefficient of Variation 12.6 % (11.5-14.5); RDW Standard Deviation 41.7 fL (36.4-46.3); White Blood Count 9.87 K/uL (4.8-10.8)
[2021-07-05 18:56] LABS: Albumin Level 3.6 gm/dl (3.4-5.0); BUN Creatinine Ratio 8.6 (10-20); Bilirubin,Total 0.4 mg/dl (0.2-1); Calcium 9.5 mg/dl (8.5-10.1); Creatinine Clr Calc Pharmacy 36.5 ml/min; Est GFR (African American) 38.4 ml/min; Est GFR (Non-African American) 33.2 ml/min; Magnesium 2.3 mg/dl (1.8-2.4); Potassium 3.8 mmol/L (3.5-5.1); Total Protein 6.5 gm/dl (6.4-8.2); Troponin I 0.053 ng/ml (0-0.045)
[2021-07-05 19:17] LABS: Lyme Ab IgG w/WB Rflx Negative (Negative); Lyme Ab IgM w/WB Rflx Negative (Negative)
--- NOTE | 2021-07-05 19:24 | CT Scan Report ---
CT head/brain wo con CLINICAL HISTORY: diffuse generalized weakness Technique: Contiguous axial CT images of the head were acquired from the base of the skull to the lauren ronda without intravenous contrast administration. Images were viewed in brain, subdural and bone [facility]. Automated dose lowering techniques and/or adjustment according to patient size were utilized for this exam. Comparison: Comparison is made to CT head 11/21/2017 Findings: The ventricles, basal cisterns, and cerebral sulci are normal. There is no acute intracranial hemorrh age or evidence of acute territorial infarction. Neither mass effect, shift of the midline structures , nor abnormal extra-axial fluid collections are shown. Prominent subarachnoid spaces are seen in the bilateral frontal lobes. Imaged portions of the paranasal sinuses and mastoid air cells are clear. The orbits appear normal. There are no acute fractures of the calvaria or scalp swelling. Impression: No acute intracranial hemorrhage, no evidence of acute territorial infarction or other acute intracra nial disease process. ACT 112: Negative or not required by law. Electronically signed by: Obey Souza M.D. 07/05/2021 7:22 PM
--- NOTE | 2021-07-05 22:04 | History & Physical Report ---
Date of Service July 05, 2021 Assessment & Plan (1) Generalized weakness: Plan: Generalized weakness- Multifactorial, including exacerbation of neuropathy, HLA-B27 + arthropathy, fibromyalgia, dehydration, CYNTHIA (2) Elevated troponin I level: Plan: The patient will be admitted to telemetry for serial cardiac enzymes, serial EKG's, cardiac rhythm monitoring and a 2-D echocardiogram with Dopplers. Troponin 0.053 upon admission Likely type II AK, supply demand mismatch (3) Acute kidney injury superimposed on chronic kidney disease: Plan: Hold indomethacin and losartan (4) Peripheral neuropathy: Plan: Peripheral neuropathy/crest syndrome history/depression with anxiety/HLA-B 27+ arthropathy/fibromyalgia- Continue carbamazepine, lorazepam, pregabalin, tizanidine and tramadol (5) Calcinosis, Raynaud phenomenon, esophageal dysfunction, sclerodactyly, and telangiectasia (CREST) syndrome: Plan: See above (6) Depression with anxiety: Plan: See above (7) HLA-B27 positive arthropathy: Plan: See above (8) Fibromyalgia: Plan: See above (9) Hyperlipidemia: Plan: Continue Zetia (10) Hypertension: Plan: Continue metoprolol tartrate 75 mg p.o. twice daily with hold parameters Hold losartan due to CYNTHIA (11) Type 2 diabetes mellitus: Plan: Anticipating decreased oral intake, decrease insulin glargine from 30 to 20 units subcu every morning Placed on Accu-Cheks before meals and at bedtime with NovoLog coverage per scale Check hemoglobin A1c (12) Dehydration, mild: Plan: IV fluids as noted above History of Present Illness Chief Complaint: The patient presents to the emergency department with complaint of severe generalized weakness that began about 2 and half hours prior to arrival. Primary Care Provider: Nancy Monsalve MD The patient is a 60-year-old female with a past medical history including pancreatitis, pneumonia due to COVID-19 virus, peripheral neuropathy, chronic abdominal pain, GERD, CREST syndrome, chronic cerebral ischemia, depression with anxiety, fatty liver, a slim 27+ arthropathy, fibromyalgia, hyperlipidemia, hypertension, diabetes mellitus type 2 and PAT. She presents with symptoms as noted above. Patient was initially found to be mildly hypotensive in the emergency department, responded rapidly to 1 L normal saline bolus. Abnormal laboratories: Troponin 0.053, creatinine 1.66, glucose 143. Lyme testing was negative, COVID-19 testing was negative. Allergies Allergy/AdvReac Type Severity Reaction Status Date / Time meperidine Allergy Unknown HIVES Verified 07/05/21 20:24 Home Medications Medication Instructions Recorded Confirmed Type cholecalciferol (vitamin D3) 125 5,000 unit PO DAILY tab 05/03/19 07/05/21 History mcg (5,000 unit) tablet evening 2 cap PO DAILY cap 05/03/19 07/05/21 History qeysaqmo-gazbbyaf-pvyoopl-cran 500 mg-365 mg-45 mg-200 mg cap cetirizine 10 mg tablet 10 mg PO DAILY #30 tab 06/19/19 07/05/21 History indomethacin 50 mg capsule 100 mg PO BID #60 cap 01/21/20 07/05/21 Rx pen needle, diabetic 32 gauge x #50 ea 06/26/20 03/17/21 Rx 1/4" (Novofine 32) lorazepam 1 mg tablet 1 mg PO .COMPLEX #5 tab 09/09/20 07/05/21 Rx ezetimibe 10 mg tablet 10 mg PO DAILY #90 tab 10/05/20 07/05/21 Rx losartan 100 mg tablet 100 mg PO DAILY #90 tab 10/05/20 07/05/21 Rx metoprolol tartrate 25 mg tablet 75 mg PO BID #540 tab 03/08/21 07/05/21 Rx carbamazepine 400 mg 400 mg PO BID #60 tab 05/31/21 07/05/21 Rx tablet,extended release,12 hr pregabalin 200 mg capsule (Lyrica) 200 mg PO TID #90 cap 06/03/21 07/05/21 Rx tramadol 50 mg tablet See Rx Instructions PO .COMPLEX 06/17/21 07/05/21 Rx #240 tab azelastine 137 mcg (0.1 %) nasal 1 sprays INTNAS BID PRN 07/05/21 07/05/21 History spray aerosol insulin glargine 100 unit/mL (3 30 unit SUBCUT QAM 07/05/21 07/05/21 History mL) subcutaneous pen omega-3 fatty acids 0 mg PO DAILY 07/05/21 07/05/21 History ondansetron 4 mg disintegrating 4 mg PO Q8H PRN 07/05/21 07/05/21 History tablet pantoprazole 40 mg tablet,delayed 40 mg PO QPM 07/05/21 07/05/21 History release tizanidine 2 mg tablet 2 mg PO Q8 PRN 07/05/21 07/05/21 History Past Med/Surg History Medical History (Updated 07/06/21 @ 04:15 by Juan Luis Bosch MD) Acid reflux disease Calcinosis, Raynaud phenomenon, esophageal dysfunction, sclerodactyly, and telangiectasia (CREST) syndrome Chronic abdominal pain Chronic cerebral ischemia Depression with anxiety Fatty liver Fibromyalgia (10/05/12) HLA-B27 positive arthropathy Hyperlipidemia Hypertension Irritable bowel syndrome Lumbar radiculopathy Migraine headache with aura Paroxysmal atrial tachycardia (10/05/12) Reactive arthritis Seasonal allergies Trigeminal neuralgia Type 2 diabetes mellitus Unspecified asthma (10/05/12) Surgical History S/P cholecystectomy S/P shoulder surgery Social History Smoking Status: Never smoker Hx Alcohol Use: No Hx Substance Use: No Preferred Language: Lithuanian Communication Ability: Effective Education And Training Manager Required: No Beliefs That Will Affect Care: None Current Living Situation: Family Current Living Situation Comment: Mother. Other Information That Helps Us Care for You: No Feels Safe at Home: Yes Safety Concerns: Feels Safe At This Time Assistive Devices: None Review of Systems Review of Systems: The patient denies chest pain, palpitations, shortness of breath, dyspnea on exertion, cough, sore throat, fevers, chills, sweats, nausea, vomiting, diarrhea , constipation, abdominal pain, pelvic pain, blood in urine or stool, dysuria, urinary frequency or urgency, memory loss, loss of consciousness, rash, abnormal bruising or bleeding, focal weakness, numbness or tingling in arms or legs, or night sweats. The review of systems is otherwise negative other than for that already noted above, and at least 10 systems have been reviewed. Physical Exam Physical Exam: The patient is asleep, but arouses easily to voice, developed and well nourished, normocephalic and atraumatic, lying in bed and in no acute distress. HEENT--PERRL, EOMI, mucous membranes and oropharynx mildly dry. Neck--supple. No JVD. No bruits. Thyroid normal, trachea midline, no adenopathy. Heart--normal S1 and S2. No murmurs, rubs or gallops. Lungs--clear bilaterally, no respiratory distress, no accessory muscle use. Abdomen--normal bowel sounds and soft. Nontender. Nondistended. Extremities--no cyanosis or clubbing. No edema. Dermatologic--normal skin turgor, normal color, no abnormal lymph nodes, no rash. Neurologic--cranial nerves II through XII grossly intact. Rheumatologic--normal range of motion. Psychiatric--normal affect. Results & Data Results & Data ([facility]) Vital Signs (Past 12 Hours) Vital Signs Temp Pulse Pulse Resp BP BP Pulse Ox 07/05/21 21:50 68 14 93 07/05/21 21:40 66 14 94 07/05/21 21:30 65 14 138/71 93 07/05/21 21:20 74 18 98 07/05/21 21:10 68 12 94 07/05/21 21:00 67 15 117/68 94 07/05/21 20:50 66 15 95 07/05/21 20:40 73 13 98 07/05/21 20:30 70 18 98 07/05/21 20:20 66 14 98 07/05/21 20:10 68 14 97 07/05/21 20:00 64 15 142/75 H 142/75 H 98 07/05/21 19:50 63 16 98 07/05/21 19:45 122/72 07/05/21 19:40 66 16 97 07/05/21 19:30 66 14 115/66 96 07/05/21 19:22 55 L 14 96 07/05/21 19:07 67 14 97/61 L 100 07/05/21 19:00 67 12 97 07/05/21 18:50 65 13 99 07/05/21 18:40 63 16 97 07/05/21 18:30 55 L 13 97 07/05/21 18:20 57 L 18 95 07/05/21 18:10 59 L 12 98 07/05/21 18:00 61 17 80/40 L 80/40 L 94 07/05/21 17:50 59 L 15 95 07/05/21 17:40 59 L 12 94 07/05/21 17:30 66 12 97 07/05/21 17:20 60 18 97 07/05/21 17:10 60 14 83/42 L 97 07/05/21 16:58 98.4 F 81 19 66/41 L 97 Laboratory Results Laboratory Results WBC 9.87 K/uL (4.8-10.8) 07/05/21 18:12 RBC 4.20 M/uL (4.2-5.4) 07/05/21 18:12 Hgb 13.7 g/dL (12.0-16.0) 07/05/21 18:12 Hct 38.3 % (37-47) 07/05/21 18:12 MCV 91.2 fL (80-100) 07/05/21 18:12 MCH 32.6 pg (25-34) 07/05/21 18:12 MCHC 35.8 g/dL (32-36) 07/05/21 18:12 RDW Std Deviation 41.7 fL (36.4-46.3) 07/05/21 18:12 RDW Coeff of Brent 12.6 % (11.5-14.5) 07/05/21 18:12 Plt Count 260 K/uL (130-400) 07/05/21 18:12 MPV 9.7 fL (7.4-10.4) 07/05/21 18:12 Immature Gran % (Auto) 0.3 % 07/05/21 18:12 Neut % (Auto) 64.6 % 07/05/21 18:12 Lymph % (Auto) 28.0 % 07/05/21 18:12 Cochran % (Auto) 5.4 % 07/05/21 18:12 Eos % (Auto) 1.3 % 07/05/21 18:12 Baso % (Auto) 0.4 % 07/05/21 18:12 Neut # (Auto) 6.38 K/uL (1.4-6.5) 07/05/21 18:12 Lymph # (Auto) 2.76 K/uL (1.2-3.4) 07/05/21 18:12 Cochran # (Auto) 0.53 K/uL (0.11-0.59) 07/05/21 18:12 Eos # (Auto) 0.13 K/uL (0-0.5) 07/05/21 18:12 Baso # (Auto) 0.04 K/uL (0-0.2) 07/05/21 18:12 Immature Gran # (Auto) 0.03 K/uL (0.00-0.02) H 07/05/21 18:12 Sodium 140 mmol/L (136-145) 07/05/21 18:12 Potassium 3.8 mmol/L (3.5-5.1) 07/05/21 18:12 Chloride 108 mmol/L (98-107) H 07/05/21 18:12 Carbon Dioxide 24 mmol/L (21-32) 07/05/21 18:12 Anion Gap 8.0 (3-11) 07/05/21 18:12 BUN 14 mg/dl (7-18) 07/05/21 18:12 Creatinine 1.66 mg/dl (0.6-1.2) H 07/05/21 18:12 Est Cr Clr Drug Dosing 36.5 ml/min 07/05/21 18:12 Est GFR ( Amer) 38.4 ml/min 07/05/21 18:12 Est GFR (Non-Af Amer) 33.2 ml/min 07/05/21 18:12 BUN/Creatinine Ratio 8.6 (10-20) L 07/05/21 18:12 Glucose 143 mg/dl (70-99) H 07/05/21 18:12 Calcium 9.5 mg/dl (8.5-10.1) 07/05/21 18:12 Magnesium 2.3 mg/dl (1.8-2.4) 07/05/21 18:12 Total Bilirubin 0.4 mg/dl (0.2-1) 07/05/21 18:12 Direct Bilirubin mg/dl (0-0.2) 07/05/21 18:12 AST 15 U/L (15-37) 07/05/21 18:12 ALT 25 U/L (12-78) 07/05/21 18:12 Alkaline Phosphatase 69 U/L (45-117) 07/05/21 18:12 Total Creatine Kinase 68 U/L (26-192) 07/05/21 18:12 Troponin I 0.053 ng/ml (0-0.045) H* 07/05/21 18:12 Total Protein 6.5 gm/dl (6.4-8.2) 07/05/21 18:12 Albumin 3.6 gm/dl (3.4-5.0) 07/05/21 18:12 Lipase 89 U/L (73-393) 07/05/21 18:12 Procalcitonin 0.05 ng/ml (0-0.5) 07/05/21 18:12 Specimen Hemolysis 07/05/21 18:12 Urine Color Yellow 07/05/21 Unknown Urine Appearance Clear (Clear) 07/05/21 Unknown Urine pH 5.0 (4.5-7.5) 07/05/21 Unknown Ur Specific [place] 1.014 (1.000-1.030) 07/05/21 Unknown Urine Protein Negative (Negative) 07/05/21 Unknown Urine Glucose (UA) 3+ (Negative) H 07/05/21 Unknown Urine Ketones Negative (Negative) 07/05/21 Unknown Urine Blood Negative (Negative) 07/05/21 Unknown Urine Nitrite Negative (Negative) 07/05/21 Unknown Urine Bilirubin Negative (Negative) 07/05/21 Unknown Urine Urobilinogen Negative (Negative) 07/05/21 Unknown Ur Leukocyte Esterase 1+ (Negative) H 07/05/21 Unknown Urine WBC (Auto) 5-10 /hpf (0-5) H 07/05/21 Unknown Urine RBC (Auto) 0-4 /hpf (0-4) 07/05/21 Unknown U Hyaline Cast (Auto) 5-10 /lpf (0-5) H 07/05/21 Unknown U Epithel Cells (Auto) >30 /lpf (0-5) H 07/05/21 Unknown Urine Bacteria (Auto) Negative (Negative) 07/05/21 Unknown Lyme Disease IgG Ab Negative (Negative) 07/05/21 18:12 Lyme Disease IgM Ab Negative (Negative) 07/05/21 18:12 COVID-19 Eval Order Covid19 at [facility] 07/05/21 19:56 SARS-CoV-2 (PCR) NEGATIVE (Negative) 07/05/21 19:[address] 07/05/21 17:24 CT head/brain wo con CLINICAL HISTORY: diffuse generalized weakness Technique: Contiguous axial CT images of the head were acquired from the base of the skull to the vertex without intravenous contrast administration. Images were viewed in brain, subdural and bone windows. Automated dose lowering techniques and/or adjustment according to patient size were utilized for this exam. Comparison: Comparison is made to CT head 11/21/2017 Findings: The ventricles, basal cisterns, and cerebral sulci are normal. There is no acute intracranial hemorrhage or evidence of acute territorial infarction. Neither mass effect, shift of the midline structures, nor abnormal extra-axial fluid collections are shown. Prominent subarachnoid spaces are seen in the bilateral frontal lobes. Imaged portions of the paranasal sinuses and mastoid air cells are clear. The orbits appear normal. There are no acute fractures of the calvaria or scalp swelling. Impression: No acute intracranial hemorrhage, no evidence of acute territorial infarction or other acute intracranial disease process. ACT 112: Negative or not required by law. Electronically signed by: Obey Souza M.D. 07/05/2021 7:22 PM Chest X-Ray 07/05/21 17:25 XR chest 1V portable CLINICAL HISTORY: diffuse weakness TECHNIQUE: Single frontal radiograph of the chest was obtained. Comparison: Comparison is made to chest 2 views 07/05/2021 FINDINGS: No lines and tubes are seen. The cardiomediastinal silhouette is normal. The lungs are clear. No evidence of pleural effusion or pneumothorax. IMPRESSION: No acute chest disease. ACT 112: Negative or not required by law. Electronically signed by: Obey Souza M.D. 07/05/2021 5:41 PM Code Status & VTE Plan Code Status Full code VTE Prophylaxis Plan VTE Prophylaxis will be ordered: Yes PG Care Time/CCT Total # of Minutes Spent Total Time Spent with Patient: Total time spent is greater than 50% in coordination of care (as documented) at patient's floor/unit and/or counseling patient: Coding Level of Care Code INT OBSERVATION CARE 70M LVL 3 Diagnoses Generalized weakness R53.1 Peripheral neuropathy G62.9 Calcinosis, Raynaud phenomenon, esophageal dysfunction, sclerodactyly, and telangiectasia (CREST) syndrome M34.1 Depression with anxiety F41.8 HLA-B27 positive arthropathy M12.80 Fibromyalgia M79.7 Hyperlipidemia E78.5 Hypertension I10 Type 2 diabetes mellitus E11.9 Elevated troponin I level R77.8 Acute kidney injury superimposed on chronic kidney disease N17.9; N18.9 Dehydration, mild E86.0
[2021-07-05] MEDS: SODIUM CHLORIDE 0.9% 1000ML 1,000 ML IV SCH (22:28)
[2021-07-05 22:36] LABS: Appearance Urine Clear (Clear); Bacteria Urine Automated Negative (Negative); Bilirubin Urine Negative (Negative); Blood Urine Negative (Negative); Color Urine Yellow; Epithelial Cell Urine Auto >30 /lpf (0-5); Glucose Urine UA 3+ (Negative); Ketones Urine Negative (Negative); Leukocyte Esterase Urine 1+ (Negative); Nitrite Urine Negative (Negative); Protein Urine Negative (Negative); RBC Urine Automated 0-4 /hpf (0-4); Specific Gravity Urine 1.014 (1.000-1.030); Urobilinogen Urine Negative (Negative)
[2021-07-06] MEDS ORDERED: GLUCAGON FOR INJ 1 MG VIAL SQ PRN (00:02)
[2021-07-06] MEDS ORDERED: traMADol HCL 50 MG TABLET PO PRN (00:02)
[2021-07-06] MEDS ORDERED: tiZANidine HCL 4 MG TABLET PO PRN (00:02)
[2021-07-06] MEDS ORDERED: ACETAMINOPHEN 325 MG TAB PO PRN (00:02)
[2021-07-06] MEDS ORDERED: CARBOHYDRATES FOR HYPOGLYCEMIA PO PRN (00:02)
[2021-07-06] MEDS ORDERED: GLUCOSE 10 TABS/TUBE PO PRN (00:02)
[2021-07-06] MEDS ORDERED: GLUCOSE 40% GEL 15 GM TUBE PO PRN (00:02)
[2021-07-06] MEDS ORDERED: ONDANSETRON INJ 2 MG/ML 2 ML VIAL IV PRN (00:02)
[2021-07-06] MEDS ORDERED: DEXTROSE 50% 50 ML SYRINGE IV PRN (00:02)
[2021-07-06] MEDS ORDERED: ONDANSETRON 4 MG OD TAB PO PRN (00:39)
[2021-07-06] MEDS: METOPROLOL TARTRATE 25 MG TAB PO SCH ×3 (00:44→20:42)
[2021-07-06 07:41] LABS: Estimated Average Glucose 171 mg/dl; Hemoglobin A1C 7.6 % (4.5-5.6)
[2021-07-06] MEDS: INSULIN ASPART 100 UNITS/ML 3 ML PEN SC SCH ×4 (07:59→20:53)
[2021-07-06] MEDS: EZETIMIBE 10 MG TABLET PO SCH (08:08)
[2021-07-06] MEDS: CETIRIZINE HCL 10 MG TABLET PO SCH (08:09)
[2021-07-06] MEDS: CHOLECALCIFEROL 1,000 UNITS 25 MCG TAB PO SCH (08:09)
[2021-07-06] MEDS: INSULIN GLARGINE SOLOSTAR 100 UNITS/ML 3 ML PEN SQ SCH (08:10)
[2021-07-06] MEDS: SODIUM CHLORIDE 0.9% 1000ML 1,000 ML IV SCH (08:12)
[2021-07-06] MEDS: PREGABALIN 100 MG CAP PO SCH ×3 (08:14→20:40)
[2021-07-06] MEDS: HEPARIN SOD 5,000 UNIT/0.5 ML VIAL SQ SCH ×2 (08:16→20:44)
[2021-07-06] MEDS ORDERED: [UNRECOGNIZED DRUG - MIXTURE] PO SCH (09:00)
[2021-07-06 09:07] LABS: BUN Creatinine Ratio 17.1 (10-20); Calcium 8.7 mg/dl (8.5-10.1); Creatinine Clr Calc Pharmacy 116.5 ml/min; Est GFR (African American) 120.4 ml/min; Est GFR (Non-African American) 103.9 ml/min; Potassium 3.4 mmol/L (3.5-5.1)
--- NOTE | 2021-07-06 09:21 | XCELERA ---
[id number]
[2021-07-06 09:58] LABS: Troponin I 0.056 ng/ml (0-0.045)
--- NOTE | 2021-07-06 13:33 | Electrocardiogram Report ---
Test Reason : Blood Pressure : / mmHG Vent. Rate : 059 BPM Atrial Rate : 059 BPM P-R Int : 152 ms QRS Dur : 102 ms QT Int : 452 ms P-R-T Axes : 031 006 011 degrees QTc Int : 447 ms Sinus bradycardia Otherwise normal ECG When compared with ECG of 21-NOV-2017 15:14, No significant change was found Confirmed by Mario Xiao ([id number]) on 07/06/2021 1:32:47 PM Referred By: REFERRED SELF Confirmed By:Mario Xiao
--- NOTE | 2021-07-06 13:43 | Electrocardiogram Report ---
Test Reason : Blood Pressure : / mmHG Vent. Rate : 059 BPM Atrial Rate : 059 BPM P-R Int : 160 ms QRS Dur : 098 ms QT Int : 452 ms P-R-T Axes : 035 014 005 degrees QTc Int : 447 ms Sinus bradycardia Otherwise normal ECG When compared with ECG of 05-JUL-2021 17:39, (unconfirmed) No significant change was found Confirmed by Mario Xiao ([id number]) on 07/06/2021 1:43:25 PM Referred By: REFERRED SELF Confirmed By:Mario Xiao
--- NOTE | 2021-07-06 16:52 | Hospitalist Progress Note ---
Date of Service July 06, 2021 Assessment & Plan (1) Acute kidney injury superimposed on chronic kidney disease: Plan: Danielle is a 60-year-old female with a past medical history of generalized chronic pain, abdominal migraine, chronic cerebral ischemia, depression with anxiety, fibromyalgia, hyperlipidemia, hypertension, lumbar radiculopathy, migraines, trigeminal neuralgia, type 2 diabetes mellitus, and paroxysmal atrial tachycardia who presented with generalized weakness and he was found to have an CYNTHIA likely due to high-dose NSAID use and dehydration. CYNTHIA 2/2 dehydration with high-dose (1600 mg/dose ibuprofen) use Creatinine baseline less than 1, acutely elevated on admission to 1.66 Patient treated with IV fluids and NSAIDs were held Creatinine improved to less than 1 today Continue to hold NSAIDs, maximize non-NSAID therapy including Tylenol BMP daily (2) Generalized weakness: Plan: Generalized weakness - Multifactorial, including exacerbation of neuropathy, HLA-B27 + arthropathy, fibromyalgia, dehydration, CYNTHIA. Suspect acute decompensation was due to dehydration with CYNTHIA Now improving Ambulating independently, nearing baseline (3) Elevated troponin I level: Plan: EKG without signs of acute [facility] Troponin 0 0.053 on admission, slowly uptrending. Serial troponin until downtrending, continue to observe overnight Suspect combination of demand ischemia with decreased clearance from CYNTHIA On bedside assessment patient with chronic pain, but no acute chest pain/pressure or shortness of breath TTE: EF 60-65%, normal LV SF, no regional wall motion abnormalities, mild concentric left ventricular hypertrophy Trend troponins overnight, continue to follow clinically Recommend outpatient cardiology follow-up, likely stress test if improved and is stable for discharge tomorrow Daily EKG as needed if chest pain/acute shortness of breath, cardiac symptoms develop (4) Peripheral neuropathy: Plan: Patient with history of chronic peripheral neuropathy, crest syndrome, fibromyalgia Continue carbamazepine Continue lorazepam Continue pregabalin Continue tizanidine Continue tramadol (5) Calcinosis, Raynaud phenomenon, esophageal dysfunction, sclerodactyly, and telangiectasia (CREST) syndrome: Plan: See above, appears at baseline (6) Depression with anxiety: Plan: See above, appears at baseline (7) HLA-B27 positive arthropathy: Plan: See above, appears at baseline (8) Fibromyalgia: Plan: See above (9) Hyperlipidemia: Plan: Continue Zetia (10) Hypertension: Plan: Continue metoprolol tartrate 75 mg p.o. twice daily with hold parameters Hold losartan due to CYNTHIA (11) Type 2 diabetes mellitus: Plan: Continue SSI, goal [id number], CF 25, ratio 15 Continue insulin glargine 20 units every morning Glucose checks AC/at bedtime Hemoglobin 7.6%, recommend outpatient follow-up with goal less than 7 (12) Dehydration, mild: Plan: - IV fluids as noted above Improved Admission and Anticipated Discharge Date Admission Date: July 05, 2021 Subjective Patient is seen at the bedside this afternoon. She reports she feels tired, but overall "okay". She reports that she has chronic pain due to fibromyalgia, joint pain, and swelling in her legs and joint pain following long shifts at work at baseline. She reports currently she has some joint pain, and diffuse achiness similar to prior without acute pain or new chest pain/chest pressure. Denies shortness of breath/difficulty breathing. Discussed her presentation, patient reports that due to her joint pain she takes 1600 mg of ibuprofen at once, usually only once a day. She usually drinks a lot of water, but has not been drinking water much recently and thinks she may have also been dehydrated. Reports she has peed today. Review of Systems Review of Systems: All systems reviewed & are unremarkable except as noted in Subjective Physical Exam Physical Exam: General: A&Ox3. NAD. Cooperative. HEENT: Atraumatic, normocephalic. Pulm: CTAB A&P. -wheezes, -rales, -rhonchi. Symmetrical chest rise. No increase work of breathing. No respiratory distress. Cardiac: RRR, -mrg. Radial pulses intact and symmetrical. Abdominal: Nontender, nondistended, soft. BS present. Results & Data Results & Data ([facility]) Vital Signs (Past 12 Hours) Vital Signs Temp Pulse Pulse Resp BP Pulse Ox 07/06/21 15:26 36.7 C 65 16 152/77 H 95 07/06/21 12:21 36.3 C L 58 L 16 175/95 H 97 07/06/21 08:00 36.4 C L 58 L 18 141/66 H 95 07/06/21 07:51 69 07/06/21 05:16 36.6 C 64 16 127/77 97 PG Care Time/CCT Total # of Minutes Spent Total Time Spent with Patient: Total time spent is greater than 50% in coordination of care (as documented) at patient's floor/unit and/or counseling patient: Coding Level of Care Code 63583 Subseq Obs Care Lvl 3 Diagnoses Generalized weakness R53.1 Elevated troponin I level R77.8 Acute kidney injury superimposed on chronic kidney disease N17.9; N18.9 Peripheral neuropathy G62.9 Calcinosis, Raynaud phenomenon, esophageal dysfunction, sclerodactyly, and telangiectasia (CREST) syndrome M34.1 Depression with anxiety F41.8 HLA-B27 positive arthropathy M12.80 Fibromyalgia M79.7 Hyperlipidemia E78.5 Hypertension I10 Type 2 diabetes mellitus E11.9 Dehydration, mild E86.0
[2021-07-06] MEDS: traMADol HCL 50 MG TABLET PO PRN (20:37)
[2021-07-06] MEDS ORDERED: PANTOprazole 40 MG TAB PO SCH (21:00)
[2021-07-07 07:16] LABS: Hematocrit (blood only) 37.9 % (37-47); Hemoglobin 13.8 g/dL (12.0-16.0); Mean Corpuscular Hemoglobin 32.5 pg (25-34); Mean Corpuscular Hgb Conc 36.4 g/dL (32-36); Mean Corpuscular Volume 89.2 fL (80-100); Mean Platelet Volume 9.6 fL (7.4-10.4); Platelet Count 205 K/uL (130-400); RDW Coefficient of Variation 12.5 % (11.5-14.5); RDW Standard Deviation 39.9 fL (36.4-46.3); Red Blood Count 4.25 M/uL (4.2-5.4); White Blood Count 4.95 K/uL (4.8-10.8)
[2021-07-07 07:32] LABS: Basophils # (auto) 0.03 K/uL (0-0.2); Basophils % (auto) 0.6 %; Eosinophils # (auto) 0.17 K/uL (0-0.5); Eosinophils % (auto) 3.4 %; Lymphocytes # (auto) 2.71 K/uL (1.2-3.4); Lymphocytes % (auto) 54.7 %; Monocytes # (auto) 0.23 K/uL (0.11-0.59); Monocytes % (auto) 4.6 %; Neutrophils # (auto) 1.81 K/uL (1.4-6.5); Neutrophils % (auto) 36.7 %
[2021-07-07 07:43] LABS: Calcium 8.9 mg/dl (8.5-10.1); Creatinine Clr Calc Pharmacy 101.2 ml/min; Est GFR (African American) 114.8 ml/min; Est GFR (Non-African American) 99.1 ml/min; Potassium 3.2 mmol/L (3.5-5.1)
[2021-07-07 07:49] LABS: Troponin I 0.065 ng/ml (0-0.045)
[2021-07-07] MEDS: INSULIN ASPART 100 UNITS/ML 3 ML PEN SC SCH ×2 (07:51→14:18)
[2021-07-07] MEDS: CHOLECALCIFEROL 1,000 UNITS 25 MCG TAB PO SCH (08:34)
[2021-07-07] MEDS: CETIRIZINE HCL 10 MG TABLET PO SCH (08:35)
[2021-07-07] MEDS: METOPROLOL TARTRATE 25 MG TAB PO SCH (08:35)
[2021-07-07] MEDS: HEPARIN SOD 5,000 UNIT/0.5 ML VIAL SQ SCH (08:35)
[2021-07-07] MEDS: EZETIMIBE 10 MG TABLET PO SCH (08:35)
[2021-07-07] MEDS: INSULIN GLARGINE SOLOSTAR 100 UNITS/ML 3 ML PEN SQ SCH (08:36)
[2021-07-07] MEDS: traMADol HCL 50 MG TABLET PO PRN (08:38)
[2021-07-07] MEDS: PREGABALIN 100 MG CAP PO SCH ×2 (08:38→13:31)
[2021-07-07] MEDS ORDERED: NITROGLYCERIN SL 0.4 MG/TAB TAB ONE (11:48)
[2021-07-07] MEDS ORDERED: NITROGLYCERIN 2% OINTMENT 30GM TUBE EXT STA (11:53)
--- NOTE | 2021-07-07 11:53 | Cardiology Consultation ---
Date of Consultation July 07, 2021 Assessment & Plan (1) Elevated troponin: -mild elevation likely a supply demand mismatch. -likely secondary to hypotension in the face of LVH at the time of her presentation. -she has experienced atypical chest pain syndrome. -will proceed with stress echocardiogram today. (2) Hypertension: -adequate control on current regimen. (3) Hyperlipidemia: -continue Zetia. History of Present Illness Attending Physician: Perry Corrales MD History of Present Illness Mrs. Cisneros is a 60-year-old female admitted July 05 with a chest pain syndrome and mildly elevated troponin. This consultation was ordered to assist in her cardiac management. The patient was in her usual state of health until approximately 2.5 hours prior to presentation. She developed profound generalized weakness and inability to ambulate. She was noted to be hypotensive in the emergency room and was given intravenous saline. She also had evidence of acute kidney injury related to dehydration and excessive use of nonsteroidal agents. Her initial troponin was mildly elevated 0.053 and persisted. The patient does give a history an atypical chest pain syndrome. She describes mid epigastric discomfort which radiates to the substernal region, left neck, left shoulder, left arm. Her symptoms resolved with the use of Pepcid or gabapentin. She does not experience classic exertional angina pectoris, however, does note dyspnea with most physical activity. She has never known of a cardiac event. She underwent a cardiac catheterization approximately 15 years ago which showed no evidence of coronary artery disease. Currently, patient is resting comfortably in bed without complaints. Past medical and surgical history 1. Hypertension 2. Hypercholesterolemia 3. Paroxysmal atrial tachycardia 4. Diabetes mellitus 5. CREST syndrome 6. GERD 7. HLA B27 positive 8. Fibromyalgia 9. Irritable bowel syndrome 10. Chronic abdominal pain 11. Migraine headaches 12. Seasonal allergies 13. Anxiety/depression 14. Chronic cerebral ischemia 15. Chronic low back pain 16. Lumbar radiculopathy 17. Cholecystectomy 18. 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 Allergies Allergy/AdvReac Type Severity Reaction Status Date / Time meperidine Allergy Unknown HIVES Verified 07/05/21 20:24 Home Medications Medication Instructions Recorded Confirmed Type cholecalciferol (vitamin D3) 125 5,000 unit PO DAILY tab 05/03/19 07/05/21 History mcg (5,000 unit) tablet evening 2 cap PO DAILY cap 05/03/19 07/05/21 History fqfjnwpb-jpyhrloy-nmhvhak-cran 500 mg-365 mg-45 mg-200 mg cap cetirizine 10 mg tablet 10 mg PO DAILY #30 tab 06/19/19 07/05/21 History indomethacin 50 mg capsule 100 mg PO BID #60 cap 01/21/20 07/05/21 Rx pen needle, diabetic 32 gauge x #50 ea 06/26/20 03/17/21 Rx 1/4" (Novofine 32) lorazepam 1 mg tablet 1 mg PO .COMPLEX #5 tab 09/09/20 07/05/21 Rx ezetimibe 10 mg tablet 10 mg PO DAILY #90 tab 10/05/20 07/05/21 Rx losartan 100 mg tablet 100 mg PO DAILY #90 tab 10/05/20 07/05/21 Rx metoprolol tartrate 25 mg tablet 75 mg PO BID #540 tab 03/08/21 07/05/21 Rx carbamazepine 400 mg 400 mg PO BID #60 tab 05/31/21 07/05/21 Rx tablet,extended release,12 hr pregabalin 200 mg capsule (Lyrica) 200 mg PO TID #90 cap 06/03/21 07/05/21 Rx tramadol 50 mg tablet See Rx Instructions PO .COMPLEX 06/17/21 07/05/21 Rx #240 tab azelastine 137 mcg (0.1 %) nasal 1 sprays INTNAS BID PRN 07/05/21 07/05/21 His tory spray aerosol insulin glargine 100 unit/mL (3 30 unit SUBCUT QAM 07/05/21 07/05/21 History mL) subcutaneous pen omega-3 fatty acids 0 mg PO DAILY 07/05/21 07/05/21 History ondansetron 4 mg disintegrating 4 mg PO Q8H PRN 07/05/21 07/05/21 History tablet pantoprazole 40 mg tablet,delayed 40 mg PO QPM 07/05/21 07/05/21 History release tizanidine 2 mg tablet 2 mg PO Q8 PRN 07/05/21 07/05/21 History Patient History Medical History (Updated 07/06/21 @ 04:15 by Juan Luis Bosch MD) Acid reflux disease Calcinosis, Raynaud phenomenon, esophageal dysfunction, sclerodactyly, and telangiectasia (CREST) syndrome Chronic abdominal pain Chronic cerebral ischemia Depression with anxiety Fatty liver Fibromyalgia (10/05/12) HLA-B27 positive arthropathy Hyperlipidemia Hypertension Irritable bowel syndrome Lumbar radiculopathy Migraine headache with aura Paroxysmal atrial tachycardia (10/05/12) Reactive arthritis Seasonal allergies Trigeminal neuralgia Type 2 diabetes mellitus Unspecified asthma (10/05/12) Surgical History S/P cholecystectomy S/P shoulder surgery Social History Smoking Status: Never smoker Hx Alcohol Use: No Hx Substance Use: No Preferred Language: Tanzanian Communication Ability: Effective Broommaker Required: No Beliefs That Will Affect Care: None Current Living Situation: Family Current Living Situation Comment: Mother. How many Children do You have: 6 Other Information That Helps Us Care for You: No Feels Safe at Home: Yes Safety Concerns: Feels Safe At This Time Assistive Devices: None Results & Data ([facility]) Vital Signs (Past 12 Hours) Vital Signs Temp Pulse Pulse Resp BP Pulse Ox Pulse Ox 07/07/21 11:38 36.3 C L 58 L 19 196/83 H 96 07/07/21 08:00 67 07/07/21 07:10 36.5 C 61 18 146/77 H 94 07/07/21 06:38 65 156/90 H 07/07/21 05:38 69 181/84 H 07/07/21 05:03 66 07/07/21 04:00 36.5 C 70 16 132/78 93 07/07/21 00:19 145/66 H 07/07/21 00:02 97 Laboratory Results CBC notes hemoglobin 13.7, hematocrit 30.3, white count 9.87, and platelet count of 179547. Electrolytes note sodium of 140, potassium 3.8, chloride 108, bicarb 24, BUN 14, creatinine 1.66, and glucose of 143. Initial troponin was 0.053 with follow-up values of 0.056, 0.065, and 0.065. Magnesium level is normal at 2.3. TSH is normal at 1.37. LDL cholesterol is 139 with an HDL of 40. Diagnostic Findings EKG notes sinus bradycardia without abnormalities. Echocardiogram notes normal left ventricular systolic function with ejection fraction of 60-65%. There was mild LVH and mild mitral regurgitation. Chest x-ray shows no acute disease. PG Care Time/CCT Total # of Minutes Spent Total Time Spent with Patient: Total time spent is greater than 50% in coordination of care (as documented) at patient's floor/unit and/or counseling patient: Coding Level of Care Code 60643 Office/OBS Consult Lvl 4 Diagnoses Elevated troponin R77.8 Hypertension I10 Hyperlipidemia E78.5
[2021-07-07] MEDS ORDERED: NITROGLYCERIN SL 0.4 MG/TAB TAB SL STA (11:54)
--- NOTE | 2021-07-07 13:49 | Electrocardiogram Report ---
Test Reason : Blood Pressure : / mmHG Vent. Rate : 059 BPM Atrial Rate : 059 BPM P-R Int : 158 ms QRS Dur : 100 ms QT Int : 452 ms P-R-T Axes : 035 008 013 degrees QTc Int : 447 ms Sinus bradycardia Normal ECG When compared with ECG of 07-JUL-2021 05:28, (unconfirmed) No significant change was found Confirmed by Mario Xiao ([id number]) on 07/07/2021 1:49:20 PM Referred By: REFERRED SELF Confirmed By:Mario Xiao
--- NOTE | 2021-07-07 13:49 | Electrocardiogram Report ---
Test Reason : Blood Pressure : / mmHG Vent. Rate : 060 BPM Atrial Rate : 060 BPM P-R Int : 154 ms QRS Dur : 104 ms QT Int : 458 ms P-R-T Axes : 047 015 013 degrees QTc Int : 458 ms Normal sinus rhythm Normal ECG When compared with ECG of 06-JUL-2021 05:21, No significant change was found Confirmed by Mario Xiao ([id number]) on 07/07/2021 1:48:58 PM Referred By: REFERRED SELF Confirmed By:Mario Xiao
--- NOTE | 2021-07-07 13:56 | Electrocardiogram Report ---
Test Reason : Blood Pressure : / mmHG Vent. Rate : 055 BPM Atrial Rate : 055 BPM P-R Int : 150 ms QRS Dur : 108 ms QT Int : 448 ms P-R-T Axes : 035 018 003 degrees QTc Int : 428 ms Sinus bradycardia Minimal voltage criteria for LVH, may be normal variant Nonspecific T wave abnormality Abnormal ECG When compared with ECG of 07-JUL-2021 05:29, (unconfirmed) Inverted T waves have replaced nonspecific T wave abnormality in Inferior leads Confirmed by Mario Xiao ([id number]) on 07/07/2021 1:55:49 PM Referred By: REFERRED SELF Confirmed By:Mario Xiao
[2021-07-07] MEDS ORDERED: POTASSIUM CHLORIDE CRTAB 20 MEQ TABCR PO SCH (14:00)
--- NOTE | 2021-07-07 14:02 | XCELERA ---
[id number]
--- NOTE | 2021-07-07 14:13 | Discharge Summary ---
Date of Service July 07, 2021 Admission HPI Per Admitting Provider The patient is a 60-year-old female with a past medical history including pancreatitis, pneumonia due to COVID-19 virus, peripheral neuropathy, chronic abdominal pain, GERD, CREST syndrome, chronic cerebral ischemia, depression with anxiety, fatty liver, a slim 27+ arthropathy, fibromyalgia, hyperlipidemia, hypertension, diabetes mellitus type 2 and PAT. She presents with symptoms as noted above. Patient was initially found to be mildly hypotensive in the emergency department, responded rapidly to 1 L normal saline bolus. Abnormal laboratories: Troponin 0.053, creatinine 1.66, glucose 143. Lyme testing was negative, COVID-19 testing was negative. Admission Exam Per Admitting Provider The patient is asleep, but arouses easily to voice, developed and well nourished, normocephalic and atraumatic, lying in bed and in no acute distress. HEENT--PERRL, EOMI, mucous membranes and oropharynx mildly dry. Neck--supple. No JVD. No bruits. Thyroid normal, trachea midline, no adenopathy. Heart--normal S1 and S2. No murmurs, rubs or gallops. Lungs--clear bilaterally, no respiratory distress, no accessory muscle use. Abdomen--normal bowel sounds and soft. Nontender. Nondistended. Extremities--no cyanosis or clubbing. No edema. Dermatologic--normal skin turgor, normal color, no abnormal lymph nodes, no rash. Neurologic--cranial nerves II through XII grossly intact. Rheumatologic--normal range of motion. Psychiatric--normal affect. Principal Diagnosis NSAID induced CYNTHIA, demand ischemia Discharge Exam General: A&Ox3. NAD. Cooperative. HEENT: Atraumatic, normocephalic. Pulm: CTAB A&P. -wheezes, -rales, -rhonchi. Symmetrical chest rise. No increase work of breathing. No respiratory distress. Cardiac: RRR, -mrg. Radial pulses intact and symmetrical. Abdominal: Nontender, nondistended, soft. BS present. CRANIAL NERVES: II: Pupils equal and reactive, no relative afferent pupillary defect, no VF cuts III, IV, : EOM intact, no gaze preference or deviation, no nystagmus. V: normal sensation in V1, V2, and V3 segments bilaterally VII: no asymmetry, no nasolabial fold flattening VIII: normal hearing to speech IX, X: normal palatal elevation, no uvular deviation XI: 5/5 head turn and 5/5 shoulder shrug bilaterally XII: midline tongue protrusion MOTOR: RUE: 5/5 umbrella tipper hand strength, finger flexion/extension, interosseus LUE: 5/5 umbrella tipper hand strength, finger flexion/extension, interosseus RLE: 5/5 to hip flexion, ankle dorsiflexion/plantarflexion LLE: 5/5 to hip flexion, ankle dorsiflexion/plantarflexion SENSORY: Normal to touch in upper and lower extremities without deficit or asymmetry Discharge Data Allergies Allergy/AdvReac Type Severity Reaction Status Date / Time meperidine Allergy Unknown HIVES Verified 07/05/21 20:24 Consultations 07/05/21 19:37 ED Decision to Admit Stat 07/06/21 00:02 Consult Cardiology Routine Ordered Studies 07/05/21 17:24 CT head/brain wo con Stat Hospital Course (1) Acute kidney injury superimposed on chronic kidney disease: Danielle is a 60-year-old female with a past medical history of generalized chronic pain, abdominal migraine, chronic cerebral ischemia, depression with anxiety, fibromyalgia, hyperlipidemia, hypertension, lumbar radiculopathy, migraines, trigeminal neuralgia, type 2 diabetes mellitus, and paroxysmal atrial tachycardia who presented with generalized weakness and he was found to have an CYNTHIA likely due to high-dose NSAID use and dehydration. To Do As Outpt: 1. Routine PCP Followup 2. Continue to follow for signs of angina 3. Pain management adjustments to minimize use of NSAIDs CYNTHIA 2/2 dehydration with high-dose (1600 mg/dose ibuprofen) use Creatinine baseline less than 1, acutely elevated on admission to 1.66 Patient treated with IV fluids and NSAIDs were held Creatinine improved and normalized following fluid tx Continue to hold NSAIDs, maximize non-NSAID therapy including Tylenol (2) Generalized weakness: Generalized weakness - Multifactorial, including exacerbation of neuropathy, HLA-B27 + arthropathy, fibromyalgia, dehydration, CYNTHIA. Suspect acute decompensation was due to dehydration with CYNTHIA Now improving Ambulating independently, near baseline (3) Elevated troponin I level: EKG without signs of acute LA Troponin 0 0.053 on admission, slowly uptrending. Serial troponins with low grade + (.053, .056, .065) Suspect combination of demand ischemia with decreased clearance from CYNTHIA On bedside assessment patient with chronic pain, but no acute chest pain/pressure or shortness of breath TTE: EF 60-65%, normal LV SF, no regional wall motion abnormalities, mild concentric left ventricular hypertrophy Given residual low grade trop pt underwent stress echo. Reached 78% MHR at 10METS with normal LVEF, no exercise induced pain, and no EKG changes. Discussed w/ cardiology OK for d/c with followup to PCP. (4) Peripheral neuropathy: Patient with history of chronic peripheral neuropathy, crest syndrome, fibromyalgia Continue carbamazepine Continue lorazepam Continue pregabalin Continue tizanidine Continue tramadol (5) Calcinosis, Raynaud phenomenon, esophageal dysfunction, sclerodactyly, and telangiectasia (CREST) syndrome: See above, appears at baseline (6) Depression with anxiety: See above, appears at baseline (7) HLA-B27 positive arthropathy: See above, appears at baseline (8) Fibromyalgia: See above (9) Hyperlipidemia: Continue Zetia (10) Hypertension: Continue metoprolol tartrate 75 mg p.o. twice daily with hold parameters Held losartan due to CYNTHIA, may resume at d/c (11) Type 2 diabetes mellitus: Continue SSI, goal [id number], CF 25, ratio 15 Continue insulin glargine 20 units every morning Glucose checks AC/at bedtime Hemoglobin 7.6%, recommend outpatient follow-up with goal less than 7 (12) Dehydration, mild: - IV fluids as noted above Improved Total Time Total Time Spent Total Time Spent (In Minutes): Total time spent day of discharge including direct care, coordination of care, review of labs/images, and documentation 40 minutes. Discharge Plan Discharge Items Patient Disposition: Home - Self-Care Reason For Visit: ELEVATED TROPONIN, GENERAIZED WEAKNESS Discharge Diagnosis: CYNTHIA, demand ischemia Activity: Per Instructions section Non-emergency contact: Primary Care Provider Call non-emergency contact if: your pain is not controlled Follow-up/Referrals: Mario Xiao MD [Physician] - Nancy Monsalve MD [Primary Care Provider] - Diet: Carb Consistent or DM2 and Heart Healthy Addtl Attending Provider Instructions: You are seen in the hospital for general weakness and were found to have an acute kidney injury, likely due to to high-dose anti-inflammatory use combined with dehydration. Your creatinine returned to normal, 0.52, on day of discharge with supportive care and fluid treatment. An ultrasound of your heart showed normal pumping (normal systolic function, ejection fraction 60-65%). Your EKG did not show any signs of acute myocardial infarction (heart attack). Your elevated troponin is most likely due to demand ischemia. You had a stress echocardiogram performed during admission which was normal. You previously been taking high doses of ibuprofen which can contribute to acute kidney injury. Please continue to drink plenty of plain water, and do not take nonsteroidal anti-inflammatory medications including ibuprofen and naproxen at this time. You may take Tylenol up to 3 g/day, is recommended you take 500 mg every 4 hours in addition to your home dose of tramadol. A follow-up appointment is being scheduled for you with your primary care provider Dr. Monsalve. You should have a reassessment of your pain and labs at that appointment. If you do not hear regarding an appointment please call her office directly at the number above. You should be seen within 1 week. A follow-up appointment is being scheduled for you with cardiology. You should be seen within 1 month. If you do not receive a call to confirm this appointment, please call their office directly at the number above. If you develop any new or worsening symptoms including fever, chills, sweats, chest pain, chest pressure, difficulty breathing, uncontrolled nausea/vomiting, rash, wheezing, passing out or nearly passing out, bleeding, black/bloody bowel movements, or other new or concerning symptoms please call your primary care physician at [phone], or call 911 for re-evaluation in the emergency department if you are very concerned. Pending Studies at Discharge: No Stand-Alone Forms: [facility], Smoking Cessation Medications and DC Order Prescriptions: New nitroglycerin 0.4 mg tablet, sublingual 0.4 mg sublingual Q5M PRN (Reason: chest pain) Qty: 30 RF: 0 Continued ezetimibe 10 mg tablet 10 mg PO DAILY Qty: 90 RF: 3 losartan 100 mg tablet 100 mg PO DAILY Qty: 90 RF: 3 metoprolol tartrate 25 mg tablet 75 mg PO BID Qty: 540 RF: 3 carbamazepine 400 mg tablet extended release 12 hr 400 mg PO BID Qty: 60 RF: 2 Lyrica 200 mg capsule 200 mg PO TID Qty: 90 RF: 5 tramadol 50 mg tablet See Rx Instructions PO .COMPLEX Qty: 240 RF: 0 (DME) pen needle, diabetic [Novofine 32] 32 gauge x 1/4" needle See Rx Instructions .ROUTE .MEDSUPPLY Qty: 50 RF: 1 lorazepam 1 mg tablet 1 mg PO .COMPLEX Qty: 5 RF: 0 radha ennz-bammbtox-pnyzysc-cran [id number] mg capsule 2 cap PO DAILY RF: 0 cholecalciferol (vitamin D3) 5,000 unit tablet 5,000 unit PO DAILY RF: 0 cetirizine 10 mg tablet 10 mg PO DAILY Qty: 30 RF: 0 omega-3 fatty acids Capsule 0 mg PO DAILY RF: 0 tizanidine 2 mg tablet 2 mg PO Q8 PRN (Reason: Muscle Pain) RF: 0 pantoprazole 40 mg tablet,delayed release (DR/EC) 40 mg PO QPM RF: 0 azelastine 137 mcg (0.1 %) aerosol,spray 1 sprays INTNAS BID PRN (Reason: allergies) RF: 0 ondansetron 4 mg tablet,disintegrating 4 mg PO Q8H PRN (Reason: Nausea) RF: 0 insulin glargine 100 unit/mL (3 mL) insulin pen 30 unit subcut QAM RF: 0 Discontinued indomethacin 50 mg capsule 100 mg PO BID Qty: 60 RF: 0 Discharge Orders: Discharge Order (Routine); Ordered 07/07/21 Ordered By: Perry Busch/Other Patient Handouts: A1C, Managing Type 2 Diabetes, Special Foot Care for Diabetes Admission Data Admit Date/Time: 07/05/21 22:03 Attending Provider: Perry Corrales Admit Provider: Juan Luis Bosch Primary Care Provider: Nancy Monsalve Other Providers: Juan Luis Bosch ; Buck Poe Coding Level of Care Code D/C DAY MANAGEMENT >30 MINS Diagnoses Acute kidney injury superimposed on chronic kidney disease N17.9; N18.9 Generalized weakness R53.1 Elevated troponin I level R77.8 Peripheral neuropathy G62.9 Calcinosis, Raynaud phenomenon, esophageal dysfunction, sclerodactyly, and telangiectasia (CREST) syndrome M34.1 Depression with anxiety F41.8 HLA-B27 positive arthropathy M12.80 Fibromyalgia M79.7 Hyperlipidemia E78.5 Hypertension I10 Type 2 diabetes mellitus E11.9 Dehydration, mild E86.0
== END 2021-07-07 15:43 | disposition home or self-care (01) ==
LOC: 2S 16:55 → ED 16:55 → SUATTDRO 22:03 → 2S 23:17